=== PATIENT | female | born 1945 | race Caucasian/White ===

== ENCOUNTER 2021-11-01 14:48 | Outpatient (CLI) | payer MEDICARE, BC, SELFPAY ==
--- NOTE | 2021-11-01 15:00 | CRLHL7_ITS ---
For Patients: As a result of the Century Cures Act, medical imaging exams and procedure reports are released immediately into your electronic medical record. You may view this report before your referring provider. If you have questions, please contact your health care provider. INDICATION: Left varicosities, history of left greater saphenous vein ablation, left lower extremity pain TECHNIQUE: Ultrasound venous duplex lower left extremity. Compression venous exam was performed using haro-scale, color Doppler, and spectral Doppler analysis. COMPARISON: None FINDINGS: Sonographic imaging demonstrates the left common femoral, deep femoral, superficial femoral, popliteal, posterior tibial and the contralateral right common femoral veins to be fully compressible with normal color Doppler blood flow. Left greater saphenous vein not visualized. IMPRESSION: No sign of deep venous thrombosis left lower extremity. Dictated by Leonila Garcia MD @ 11/02/2021 3:30:09 PM (Electronically Signed)
== END 2021-11-01 14:49 | disposition home or self-care (01) ==
LOC: US 14:51
PROVIDERS: PCP Family Medicine; Visit Provider Family Medicine
DX: I83.812 Varicose veins of left lower extremity with pain
CPT/HCPCS: 93971

== ENCOUNTER 2021-12-24 13:52 | Outpatient (CLI) | payer MEDICARE, BC, SELFPAY ==
--- NOTE | 2021-12-24 14:01 | CRLHL7_ITS ---
For Patients: As a result of the Century Cures Act, medical imaging exams and procedure reports are released immediately into your electronic medical record. You may view this report before your referring provider. If you have questions, please contact your health care provider. CLINICAL HISTORY: Painful left lower extremity varicosities. History of prior superficial venous intervention. COMPARISON: None. TECHNIQUE: The lower extremity veins were examined with haro-scale ultrasound, color-flow and Doppler spectral analysis. Compressibility of the veins by transducer pressure was used to evaluate the presence or absence of DVT/SVT at sites per exam specific protocol. Assessment of venous competence was performed by Doppler spectral analysis and was performed and documented at exam specific sites in an upright position for venous insufficiency studies. FINDINGS: There is no evidence of DVT or deep venous incompetence in the left lower extremity. The deep venous system is compressible with augmentation of flow post compression. Phasic flow is identified. The left saphenofemoral junction and great saphenous vein are not seen to the distal thigh, consistent with prior intervention. Residual great saphenous vein incompetence is noted in the mid-calf (reflux duration 6 seconds, 2.8 mm), and at the distal calf (reflux duration 7.8 seconds, 3 mm). An incompetent perforating vein is noted in the mid-thigh (reflux duration 1.5 seconds, 3 mm). IMPRESSION: 1. No evidence of DVT or deep venous incompetence in the left lower extremity. 2. 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 Dictated by Mahesh Wilson MD @ 12/25/2021 9:38:33 AM (Electronically Signed)
== END 2021-12-24 13:53 | disposition home or self-care (01) ==
LOC: US 13:53
PROVIDERS: PCP Family Medicine; Visit Provider Surgery
DX: I83.812 Varicose veins of left lower extremity with pain (principal)
CPT/HCPCS: 93971

== ENCOUNTER 2022-02-24 08:00 | Day surgery (SDC) | payer MEDICARE, BC, SELFPAY ==
[2022-02-24 08:30] VITALS: BP 98/57; PULSE 58; RESP 16; TEMP 36.2; O2SAT 96
[2022-02-24 08:39] VITALS: BP 123/69; PULSE 60; RESP 16; TEMP 36.2; O2SAT 99
[2022-02-24] MEDS: LIDOCAINE 0.5%-EPI 1:200,000 50 ML VIAL INJECTION (09:11)
--- NOTE | 2022-02-24 09:56 | W.ANESCHARGE ---
Anesthesia Charges Start Date/Time Anesthesia Start Date: 02/24/22 Anesthesia Start Time: 08:55 Stop Date/Time Anesthesia Stop Date: 02/24/22 Anesthesia Stop Time: 10:00 Summary Emergency: No Extremes of Age: Over 70-CPT 97202
[2022-02-24] MEDS: LACTATED RINGERS 1000 ML 1,000 ML 75 ML IV (10:00)
--- NOTE | 2022-02-24 10:06 | PM.GSPRC ---
Operative Note Date of procedure: 02/24/22 Type of Procedure: 1. Excision left posterior knee lesion 2. Stab phlebectomy, left leg, 10 cm Procedure Description: After discussing the risks and benefits of the procedure, the patient signed informed consent.? The operative site was marked and the patient was brought to the operating room and placed on the operating table in right lateral decubitus.? Care was taken to pad the patient's pressure points.?? The patient was then given sedation by anesthesia.?? The operative site was then prepped and draped in the usual sterile fashion.? A time-out was then performed. Preoperatively, with the patient standing, the area varicosity behind the knee was marked with a marking pen. This coincided with a lesion on the posterior knee. An elliptical incision was made around this lesion and taken down to the subcutaneous that. The lesion was excised and marked with a stitch in the 3:00 a.m. or medial position. This was sent to pathology. Once this was done the vein was identified in the wound. This was grasped and dissected inferiorly and superiorly. The vein was noted to be very fragile and did break easily. A stab incision was made superiorly along the tract of marked vein. The vein was hooked and a mosquito clamp was then used to dissect the vein inferiorly and superiorly along its tract. Again the vein tore quite easily. The tract was probed and connected between the inferior incision and superior incision and any remaining vein tissue was removed. An incision was made superior to this incision and similarly the vein was dissected out, grass and pulled from the incision. This was repeated inferior to the lesion incision in 2 areas. Again the vein was noted to be very fragile and tore quite easily with minimal tension. The tracts were explored to ensure that the tissue was removed. Once this was done, hemostasis appeared adequate. This had been achieved with pressure. The elliptical incision behind the knee was closed with a running 4-0 Monocryl. Glue was applied then to all the stab incisions. Pressure dressing was applied. ? The patient was then woken and transported to the recovery area in stable condition. ? The patient tolerated the procedure well. Findings: Skin lesion on the left posterior knee, consistent with seborrheic keratosis Varicosities behind left knee. Anesthesia: MAC Surgeon: Loreta Gary MD Estimated blood loss (mL): 10 Condition: stable Disposition: same day
--- NOTE | 2022-02-24 10:06 | W.ANESCHARGE ---
Anesthesia Charges Start Date/Time Anesthesia Start Date: 02/24/22 Anesthesia Start Time: 08:55 Stop Date/Time Anesthesia Stop Date: 02/24/22 Anesthesia Stop Time: 10:00 Summary Emergency: No Extremes of Age: Over 72-CPT 09326
[2022-02-24 10:15] VITALS: BP 119/64; PULSE 63; RESP 16; TEMP 36.7; O2SAT 99
[2022-02-24 10:45] VITALS: BP 119/68; PULSE 65; RESP 16; TEMP 36.7; O2SAT 98
[2022-02-24 10:47] VITALS: BP 118/70; PULSE 68; RESP 16; TEMP 36.7; O2SAT 98
[2022-02-24 11:18] VITALS: BP 116/68; PULSE 65; RESP 16; TEMP 36.7; O2SAT 99
== END 2022-02-24 11:22 | disposition home or self-care (01) ==
PROVIDERS: PCP Family Medicine; Visit Provider Surgery
PROC: (CPT 37799; principal; 2022-02-24 09:00)
DX: L82.1 Other seborrheic keratosis (principal); I83.812 Varicose veins of left lower extremity with pain
CPT/HCPCS: 37799; 11402; 00400; 01520; 99100; J2704; J3490; J7120

== ENCOUNTER 2022-04-11 14:28 | Outpatient (CLI) | payer MEDICARE, BC, SELFPAY ==
--- OUTSIDE RECORDS SUMMARY | 2022-04-11 14:31 | XMS_ITS | Clinical Summary ---
:1945 Author Organization [employer] [facility] [place] [address] Care Team Providers Name Role Phone Reema Moses DO Primary Care Provider [phone] Allergies No known active allergies Medications Medication Sig Dispensed Refills Start Date End Date Status cholecalciferol Take 1 tablet by 0 07/01/2012 Active (VITAMIN D) 1,000 mouth once daily. unit tablet ascorbic acid Take 1 tablet by 0 07/01/2012 Active (VITAMIN C) 1,000 mg mouth once daily. tablet omega-3 fatty Take by mouth. 0 07/01/2012 Active acids-vitamin E (FISH twice daily OIL) 1,000 mg cap alendronate (FOSAMAX) Take 1 tablet by 0 07/01/2012 Active 70 mg tablet mouth once a week in the morning. Take on empty stomach with full glass of water. Do not lie down for 1 hr. Has not started yet. 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 Venous insufficiency 07/01/2012 High risk for fracture due to osteoporosis by DEXA sca n 07/01/2012 Encounters Date Type Specialty Care Team Description 02/24/2022 Lab Requisition Loreta Gary MD from Last 3 Months Social History Tobacco Use Types Packs/Day Years Used Date Never Smoker Sex Assigned at Date Recorded Not on file Obstetrics History Last Filed Vital Signs Vital Sign Reading Time Taken Comments Blood Pressure 110/72 07/01/2012 10:19 AM [employer] Pulse 62 07/01/2012 10:19 AM [employer] Temperature - - Respiratory Rate - - Oxygen Saturation - - Inhaled Oxygen Concentration - - Weight 55.8 kg (123 lb) 08/17/2012 12:00 PM CDT Height 160 cm (5' 3) 08/17/2012 12:00 PM CDT Body Mass Index 21.79 08/17/2012 12:00 PM CDT Plan of Treatment Health Maintenance Due Date Last Done Comments COVID-19 vaccine series (#1) 1945 Tdap 1958 Depression screening for age 12+ 1959 BMI (ht and wt on same day) for age 18+ 1965 Hepatitis C screening for age 18-79 1965 Tetanus booster 1967 Colonoscopy through age 75 02/23/1992 Lipids for age 45-75 02/23/1992 Zoster (shingles) series for age 50+ (1 of 2) 1997 DEXA/DXA scan for age 65+ 02/23/2012 Pneumococcal series for age 65+ (1 - PCV) 02/23/2012 Influenza for age 65+ 01/02/2022 Procedures Procedure Name Priority Date/Time Associated Diagnosis Comme nts PATH TISSUE EXAM Routine 02/24/2022 9:18 AM Resul ts for this CDT procedure are i n the results section. LAB TRACKING EVENT Routine 02/24/2022 9:15 AM CDT from Last 3 Months Results [facility] TISSUE EXAM (02/24/2022 9:18 AM CDT) Component Value Ref Test Analysis Performed At [facility] gist Range Method Time Signature Case Report Pathology Report ?Case: [id number] ? 02/25/2022 [facility] Authorizing Provider: ??Loreta Murguia MD ??Collected: ? 02/24/2022 0918 ? 1:52 PM CDT HEALTH Ordering Location: ? [facility] ?Received: ?02/24/2022 1944 ? HEATHER HUERTAS Pathologist: ? Prinecss Keyes MD ? ENTRAL Specimen: ?Left Knee ? LABORATORY Final SKIN, LEFT POSTERIOR KNEE, EXCISION: [facility] Electronically Diagnosis 1. Benign verrucous keratosis 1:52 PM [facility] signed by 2. Negative for malignancy LAB ORATORY-C Princess Keyes MD on LABORATORY 2 at 1:52 PM Clinical Lesion 02/25/2022 [facility] Information 1:52 PM [facility] LABORATORY-C ENTRAL LABORATORY Gross A) Received in formalin, lab eled with the patient's name and posterior knee lesion, left, is a 1.1 x 0.5 x 0.2 cm oriented skin ellipse with a suture that is not designated. ??The suture will be desig [facility] Description nated as 12:00. ??The skin s urface displays a 0.7 x 0.4 cm raised, crusted lee lesion that is 0.1 cm from the 3:00 margin. 1:52 PM [facility] LABORATORY-C The specimen is inked as follows: ENTRAL 12-3 o'clock: Blue LABORATORY 3-6 o'clock: Green 6-9 o'clock: Red 9-12 o'clock: Yellow The specimen is entirely submitted as follows: 1. ??12:00 and 6:00 tips 2. Cross-sections SSS 02/24/2022 Microscopic The final diagnosis is based on microscopic examination of appropriate sections of all specimens. 02/25/2022 [facility] Description 1:52 PM CDT HEALTH LABORATORY-C Sections reveal epidermal ve rrucous hyperplasia. No atypia or definitive viral cytopathic effect is seen. The presence of multicolored ink is confirmed on tissue sections. ENTRAL LABORATORY Additional 02/25/2022 [facility] Information Interpreted at [facility], Central Laboratory - [address], [place] [address] 1:52 PM CDT HEALTH LABORATORY-C ENTRAL LABORATORY Specimen Anatomical Collection Method Collection Time Receive d Time (Source) Location / / Volume Laterality Other (Left 02/24/2022 9:18 AM 7:44 Knee) CDT PM CDT Loreta Gary MD PATHOLOGY/CYTOLOGY Performing Organization Address City/State/ZIP Code Phon e Number [facility] [address] [place] [address] LABORATORY-CENTRAL 2000 LABORATORY LAB TRACKING EVENT (02/24/2022 9:15 AM CDT) Specimen Anatomical Collection Method Collection Time Receive d Time (Source) Location / / Volume Laterality Other (Other) Client Collect / 02/24/2022 9:15 AM 02/02 7:05 Unknown CDT PM CDT Loreta Gary MD LAB BILL ONLY Performing Organization Address City/State/ZIP Code Phon e Number [facility] [address] [place] [address] LABORATORY-CENTRAL 1999 LABORATORY from Last 3 Months Insurance Payer Benefit Plan / Subscriber ID Effective Dates Phone Addre ss Type Group MEDICARE PART A MEDICARE PART A [id number] 2012-Presen ATTN: CLAIMS - HB USE ONLY HB ONLY t [address] [place] [address] MEDICARE PART B MEDICARE PART B [id number] 2012-Presen ATTN: CLAIMS - HB USE ONLY HB ONLY t [address] [place] [address] [place] [place] BLUE CROSS [id number] 2012-Presen [address] [address] [address] [place], [place] [id number] BLUE CROSS BLUE CROSS [id number] 2012-Presen [address] [address] [address] [place], [place] ONLY [id number] Guarantor Name Account Type Relation to Date of Phone Bill ing Patient Address Cornelia Servin Personal/Family Self [address] (Home) [place] [address] Care Teams Tobacco Roller Relationship Specialty Start Date End Date Reema Moses DO PCP - General Family Practice 07/01/12
--- NOTE | 2022-04-11 14:40 | CRLHL7_ITS ---
For Patients: As a result of the Century Cures Act, medical imaging exams and procedure reports are released immediately into your electronic medical record. You may view this report before your referring provider. If you have questions, please contact your health care provider. BILATERAL SCREENING MAMMOGRAM WITH COMPUTER-AIDED DETECTION AND TOMOSYNTHESIS TECHNIQUE: CC and MLO views were obtained. These mammographic images have been obtained using full-field digital technique. These mammographic images were interpreted with the benefit of computer-aided detection. Breast tomosynthesis was used in this interpretation. COMPARISON FILM: 01/28/21, 01/17/20, 12/30/18. FINDINGS: The breasts are heterogeneously dense, which may obscure small masses. IMPRESSION: There is no radiographic evidence for malignancy. ASSESSMENT: BI-RADS Category 1: Negative RECOMMENDATION: Routine screening mammogram in 1 year. A lay language report of this examination will be provided to the patient. BRAYDON CUI M.D. Diagnostic Radiologist [email or web address]/[email or web address] Transcribed: 04/14/2022, 2:[address]/Dictated by: Braydon Cui MD @ 04/14/2022 9:19:00 AM (Electronically Signed)
== END 2022-04-11 14:29 | disposition home or self-care (01) ==
LOC: MAMMO 14:29
PROVIDERS: PCP Family Medicine; Visit Provider Family Medicine
DX: Z12.31 Encounter for screening mammogram for malignant neoplasm of breast (principal); R92.2 Inconclusive mammogram
CPT/HCPCS: 77063; 77067

== ENCOUNTER 2022-12-30 09:07 | Inpatient (IN) | payer MEDICARE, BC, SELFPAY ==
[2022-12-30] VITALS (15 sets, daily range): BP systolic 76–123; BP diastolic 47–61; PULSE 63–117; RESP 16–18; TEMP 36.6–37.2; O2SAT 94–99; BMI 22.1; BMI 22.2
[2022-12-30 09:23] LABS: Appearance Urine Clear (Clear); Bilirubin Urine 1+ (Negative); Blood Urine 3+ (Negative); Color Urine Dark yellow (Yellow); Glucose Urine Negative (Negative); Ketones Urine Trace (Negative); Leukocyte Esterase Urine 3+ (Negative); Nitrite Urine Positive (Negative); Protein Urine 3+ (Negative); pH Urine 7.5 (5.0-8.5)
[2022-12-30 09:33] LABS: Bacteria Urine Moderate; RBC Urine 50-100 (0-2); Squamous Epithelial Cell Urine Few (None-Few); WBC Urine >100 (0-5)
[2022-12-30] MEDS: 0.9 % SODIUM CHLORIDE 1000 ml 1,000 ML IV (09:51)
[2022-12-30 09:52] LABS: Lactate* 1.4 mmol/L (0.5-1.9)
[2022-12-30 09:54] LABS: Basophils Percent Auto 0.1 % (0.0-3.0); Hematocrit 37.3 % (33.0-51.0); Hemoglobin* 12.5 gm/dL (12.0-16.0); Immature Granulocytes Pct Auto 1.1 %; Lymphocytes Percent Auto 2.6 % (20-44); Mean Corpuscular HGB Conc 34 gm/dL (32-36); Mean Corpuscular Hemoglobin 30 pg (26-34); Mean Corpuscular Volume 91 fL (80-100); Monocytes Percent Auto 3.7 % (0.0-11.0); Neutrophils Percent Auto 92.5 % (42.0-72.0); Platelet Count* 213 K/uL (140-440); RDW Coefficient of Variation % 12.3 % (11.5-15.5); Red Blood Count 4.12 m/uL (4.00-5.20); White Blood Count* 17.08 K/uL (4.50-11.00)
[2022-12-30 09:57] LABS: Chloride* 101 mmol/L (96-114); Potassium* 3.1 mmol/L (3.6-5.1); Slide Review Reflex No; Sodium* 133 mmol/L (135-149)
[2022-12-30 10:00] LABS: Creatinine* 0.8 mg/dL (0.5-1.5); Est. Creatinine Clearance* 40.21; Estimated Glomerular Filt Rate 77 ml/min
[2022-12-30 10:01] LABS: Anion Gap 11 mEq/L (7-15); Blood Urea Nitrogen* 18 mg/dL (7-30); Calcium* 8.8 mg/dL (8.4-10.6); Carbon Dioxide* 21 mmol/L (20-32); Glucose* 142 mg/dL (60-115)
[2022-12-30 10:03] LABS: Prothrombin Time 14.6 Seconds
[2022-12-30 10:04] LABS: C Reactive Protein* 5.2 mg/dL (0.5-1.0); INR 1.08 (0.91-1.10)
[2022-12-30 10:10] LABS: D Dimer Quantitative* 5.34 ug/ml (0.00-0.50)
[2022-12-30] MEDS: cefTRIAXone 1 GM in 0.9 % SODIUM CHLORIDE Mini-bag 100 ML IVPB (10:11)
--- NOTE | 2022-12-30 10:13 | CRLHL7_ITS ---
For Patients: As a result of the Century Cures Act, medical imaging exams and procedure reports are released immediately into your electronic medical record. You may view this report before your referring provider. If you have questions, please contact your health care provider. INDICATION: COVID 19, elevated D-dimer. TECHNIQUE: CT chest PE was acquired with 95 cc Isovue 370 IV contrast. COMPARISON: None. FINDINGS: Heart and vasculature: Contrast opacification of the pulmonary arterial tree is adequate. No sign of pulmonary embolism. Heart size is normal. Thoracic aorta and pulmonary artery are normal in caliber. Lungs and pleura: No suspicious nodules or infiltrates. 2 millimeter nodule within the right upper lobe (image 79, series 7). Linear atelectasis and/or scar in the lung bases. No pleural effusions, pleural thickening, or pneumothorax. Lymph nodes/mediastinum: No mediastinal, hilar, or axillary adenopathy. Chest wall: No masses. Upper abdomen: Calcified granulomas throughout the spleen. No acute abdominal abnormality. Bones: No acute bone or joint abnormality. Degenerative spondylosis of the visualized spine. IMPRESSION: 1. No pulmonary arterial embolism. 2. Evidence of previous granulomatous disease. 3. 2 millimeter right upper lobe pulmonary nodule. If the patient is at low risk for pulmonary malignancy then no routine imaging follow-up is necessary. If the patient is at increased risk of pulmonary malignancy then a follow-up CT scan of the chest could be performed in 1 year as per Fleischner criteria guidelines. Please note that all CT scans at this facility use dose modulation, iterative reconstruction, and/or weight-based dosing when appropriate to reduce radiation dose to as low as reasonably achievable. Dictated by Monico Ashford MD @ 12/30/2022 11:23:56 AM (Electronically Signed)
[2022-12-30 10:14] LABS: Alanine Aminotransferase* 19 U/L (4-35); Alkaline Phosphatase* 67 U/L (40-150); Aspartate Amino Transferase* 25 U/L (12-35); Total Protein* 6.9 g/dL (6.0-8.3)
--- NOTE | 2022-12-30 11:02 | ED_ITS ---
HPI - General Adult General Chief complaint: Weakness Stated complaint: poss uti, fatigue, dizzy COVID + Time Seen by Provider: 12/30/22 09:12 Source: patient Mode of arrival: ambulatory Limitations: no limitations History of Present Illness HPI narrative: 77-year-old female coming in today complaining of not feeling well in general. States that she self-diagnosed COVID-19 last , since then feels like she has developed UTI. She complains of dysuria and suprapubic discomfort. States that she feels weak all over, decreased appetite, feels lightheaded and wobbly when she stands up. She has been drinking plenty of fluids she states that has not been eating much food. Denies fever or vomiting. No blood in her urine that she is aware of. She denies abdominal pain or chest pain. Cough is minimal, she is not feeling short of breath. Related Data Home Medications Medication Instructions Recorded Confirmed calcium carbonate 600 mg-vitamin 1 tab PO DAILY 10/29/21 12/29/22 D3 5 mcg (200 unit) tablet cholecalciferol (vitamin D3) 25 25 mcg PO QDAY 10/29/21 12/29/22 mcg (1,000 unit) capsule diphenhydramine HCl 25 mg capsule mg PO DAILY 10/29/21 12/29/22 omega-3 650 mg-dha 400 mg-epa 200 cap PO 10/29/21 12/29/22 mg-fish oil-vit D3 300 unit capsule valacyclovir 1 gram tablet mg PO DIRECTED 10/29/21 12/29/22 triamcinolone acetonide 0.1 % 1 applic topical BID PRN 10/31/22 12/29/22 topical ointment Previous Rx's Medication Instructions Recorded hydrocortisone 2.5 % topical cream 1 applic topical BID PRN rash #20 05/23/22 grams tizanidine 2 mg capsule (Zanaflex) 2 mg PO QHS PRN muscle spasticity 10/31/22 #14 caps cyclobenzaprine 5 mg tablet 5 - 10 mg (1 - 2 x 5 mg) PO QHS 11/06/22 PRN muscle spasm #20 tabs nitrofurantoin 100 mg PO BID 5 days #10 caps 12/29/22 monohydrate/macrocrystals 100 mg capsule phenazopyridine 100 mg tablet 100 mg PO TID PRN pain 6 doses #6 12/29/22 (Pyridium) tabs Allergies Allergy/AdvReac Type Severity Reaction Status Date / Time alendronate sodium Allergy Severe Verified 12/29/22 14:59 Review of Systems Status of ROS: Reports: 10 or more systems reviewed and unremarkable except as noted in History and below 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.1 - Herpesviral vesicular dermatitis (ICD-10) Seborrheic keratosis (05/18/12) ?L82.1 - Other seborrheic keratosis (ICD-10) Osteopenia (2019) ?M85.80 - Other specified disorders of bone density and structure, unspecified site (ICD-10) Osteoarthritis (arthritis due to wear and tear of joints) ?M19.90 - Unspecified osteoarthritis, unspecified site (ICD-10) Dyslipidemia ?E78.5 - Hyperlipidemia, unspecified (ICD-10) Surgical History Normal colonoscopy (2016) History of varicose vein ligation and stripping ?Z98.890 - Other specified postprocedural states (ICD-10) Family History Son Epilepsy Mother Stroke, Onset Age: 76 Father Syringomyelocele Social History Narrative: , retired teacher, 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 Alert and oriented. Answers questions appropriately. Mood and affect are appropriate. Thoughts are goal oriented and rational. No tangential or magical thinking noted. Patient speaks in full sentences without needing to catch her breath. HEENT: Normocephalic atraumatic. Pupils are equally round reactive to light. Extraocular muscles are intact. Conjunctivae are moist without any icterus noted. Moist mucous membranes. Posterior pharynx is normal. Neck is soft without any lymphadenopathy or thyromegaly. No masses are appreciated. Cardiovascular: Heart is regular rate and rhythm S1 and S2 are present without any murmurs. Lungs: Clear to auscultation bilaterally no wheezes rhonchi or rales are appreciated. Patient takes deep breaths without any discomfort. Abdomen: Soft and nontender nondistended with normal bowel sounds. No guarding or rebound. No masses or organomegaly appreciated. Extremities: Bilateral lower extremities are without edema. Normal DP and PT pulses. Skin: Well perfused without any obvious rashes. Const: Vital Signs, click to edit/add: Vital Signs - 24 hr 12/30/22 09:29 12/30/22 09:40 12/30/22 09:45 Temperature 99.0 F Pulse Rate [Pulse Oximeter] 111 H Pulse Rate [orthos tatic lying] 96 Pulse Rate [orthos tatic sitting] 108 H Pulse Rate [orthos tatic standing] 117 H Respiratory Rate 16 Blood Pressure [Ri ght Upper Arm] 113/58 L Blood Pressure [or thostatic lying] 104/53 L Blood Pressure [or thostatic sitting] 89/53 L Blood Pressure [or thostatic standing ] 76/48 L Pulse Oximetry 95 94 Oxygen Delivery Me thod Room Air 12/30/22 09:46 12/30/22 10:00 12/30/22 10:13 Temperature Pulse Rate [Pulse Oximeter] 83 Pulse Rate [orthos tatic lying] Pulse Rate [orthos tatic sitting] Pulse Rate [orthos tatic standing] Respiratory Rate Blood Pressure [Ri ght Upper Arm] 96/58 L 95/50 L Blood Pressure [or thostatic lying] Blood Pressure [or thostatic sitting] Blood Pressure [or thostatic standing ] Pulse Oximetry 95 Oxygen Delivery Me thod Room Air 12/30/22 10:17 12/30/22 10:31 12/30/22 11:00 Temperature Pulse Rate [Pulse Oximeter] 83 82 87 Pulse Rate [orthos tatic lying] Pulse Rate [orthos tatic sitting] Pulse Rate [orthos tatic standing] Respiratory Rate Blood Pressure [Ri ght Upper Arm] 97/54 L 101/53 L 123/61 Blood Pressure [or thostatic lying] Blood Pressure [or thostatic sitting] Blood Pressure [or thostatic standing ] Pulse Oximetry 96 97 99 Oxygen Delivery Me thod Room Air Room Air Room Air Course Course Hospital Course: IV established and fluids were started. UA grossly positive for signs of infection. Rocephin given for UTI. White blood cell count elevated at just above 17,000, CRP elevated. D-dimer elevated-patient went to get a chest CT PE protocol. EKG was ordered. Patient is respond IV fluids, systolic blood pressure did increase and pulse did come down into the 80s. Vital Signs Vital signs: Initial Vital Signs Temperature 99.0 F 12/30/22 09:29 Temperature Source Temporal Artery Scan 12/30/22 09:29 Pulse Rate 111 H 12/30/22 09:29 Pulse Rhythm Irregular 12/30/22 09:29 Respiratory Rate 16 12/30/22 09:29 Blood Pressure 113/58 L 12/30/22 09:29 Blood Pressure Mean 76 12/30/22 09:29 Blood Pressure Position Supine 12/30/22 09:29 Pulse Oximetry 95 12/30/22 09:29 Oxygen Delivery Method Room Air 12/30/22 09:29 Vital Signs Temperature 99.0 F 12/30/22 09:29 Pulse Rate 111 H 12/30/22 09:29 Respiratory Rate 16 12/30/22 09:29 Blood Pressure 113/58 L 12/30/22 09:29 Pulse Oximetry 95 12/30/22 09:29 Oxygen Delivery Method Room Air 12/30/22 09:29 Temperature 99.0 F 12/30/22 09:29 Pulse Rate 87 12/30/22 11:00 Respiratory Rate 16 12/30/22 09:29 Blood Pressure 123/61 12/30/22 11:00 Pulse Oximetry 99 12/30/22 11:00 Oxygen Delivery Method Room Air 12/30/22 11:00 Medical Decision Making MDM Narrative Medical decision making narrative: 77-year-old female with UTI COVID-19, hypotension. Did fit sepsis criteria upon arrival, however with elevated blood pressure and decreased pulse, she no longer fits the criteria. Patient will be admitted for further management. Chest CT PE protocol pending at this time. Medical Records Medical records reviewed: Yes I reviewed the patient's medical records Lab Data Lab results reviewed: Yes I reviewed the patient's lab results Labs: Lab Results 12/30/22 12/30/22 Range/Units 09:15 09:25 WBC 17.08 H (4.50-11.00) K/uL RBC 4.12 (4.00-5.20) m/uL Hgb 12.5 (12.0-16.0) gm/dL Hct 37.3 (33.0-51.0) % MCV 91 (80-100) fL MCH 30 (26-34) pg MCHC 34 (32-36) gm/dL RDW Coeff of Stanislaw 12.3 (11.5-15.5) % Plt Count 213 (140-440) K/uL Neut % (Auto) 92.5 H (42.0-72.0) % Lymph % (Auto) 2.6 L (20-44) % [place] % (Auto) 3.7 (0.0-11.0) % Eos % (Auto) 0.0 (0.0-7.0) % Baso % (Auto) 0.1 (0.0-3.0) % Neut # (Auto) 15.80 H (1.7-7.0) K/uL Lymph # (Auto) 0.40 L (0.90-2.90) K/uL [place] # (Auto) 0.60 (0.00-0.90) K/UL Eos # (Auto) 0.00 (0.00-0.50) K/uL Baso # (Auto) 0.00 (0.00-0.30) K/uL Abs Immat Gran (auto) 0.20 (0.00-0.30) K/uL Imm/Tot Granulo (auto) 1.1 % INR 1.08 (0.91-1.10) D-Dimer Quant (PE/DVT) 5.34 H (0.00-0.50) ug/ml Sodium 133 L (135-149) mmol/L Potassium 3.1 L (3.6-5.1) mmol/L Chloride 101 (96-114) mmol/L Carbon Dioxide 21 (20-32) mmol/L Anion Gap 11 (7-15) mEq/L BUN 18 (7-30) mg/dL Creatinine 0.8 (0.5-1.5) mg/dL Estimated Creat Clear 40.21 Estimated GFR 77 ml/min Glucose 142 H (60-115) mg/dL Lactate 1.4 (0.5-1.9) mmol/L Calcium 8.8 (8.4-10.6) mg/dL Total Bilirubin 1.0 (0.1-1.5) mg/dL Direct Bilirubin 0.0 (0.0-0.5) mg/dL AST 25 (12-35) U/L ALT 19 (4-35) U/L Alkaline Phosphatase 67 (40-150) U/L C-Reactive Protein 5.2 H (0.5-1.0) mg/dL Total Protein 6.9 (6.0-8.3) g/dL Albumin 4.0 (3.3-5.0) g/dL Urine Color Dark yellow (Yellow) Urine Appearance Clear (Clear) Urine pH 7.5 (5.0-8.5) Ur Specific [place] 1.020 (1.000-1.030) Urine Protein 3+ A (Negative) Urine Glucose (UA) Negative (Negative) Urine Ketones Trace A (Negative) Urine Blood 3+ A (Negative) Urine Nitrite Positive A (Negative) Urine Bilirubin 1+ A (Negative) Urine Urobilinogen 1.0 (0.2-1.0) Ur Leukocyte Esterase 3+ A (Negative) Urine RBC 50-100 A (0-2) Urine WBC >100 A (0-5) Ur Squamous Epith Cells Few (None-Few) Urine Bacteria Moderate A (None) Discharge Plan Discharge Clinical Impression: COVID-19, Acute UTI, Hypotension Patient Disposition: Admitted As Observation
[2022-12-30 12:58] LABS: Lactate Dehydrogenase* 235 U/L (120-246)
--- NOTE | 2022-12-30 14:44 | CRLHL7_ITS ---
For Patients: As a result of the Century Cures Act, medical imaging exams and procedure reports are released immediately into your electronic medical record. You may view this report before your referring provider. If you have questions, please contact your health care provider. INDICATION: Left lower quadrant pain.. TECHNIQUE: CT abdomen and pelvis acquired with 62 cc Isovue 370 IV contrast. COMPARISON: None. FINDINGS: Lower chest: Bibasilar linear opacities likely atelectasis or scarring. Liver: Unremarkable. Normal in size and attenuation. No suspicious masses. Gallbladder and bile ducts: Unremarkable. No stones or inflammation. No biliary dilatation. Pancreas: Unremarkable. No mass or inflammation. Spleen: Multiple calcified granulomas in the spleen. Adrenal glands: Unremarkable. No nodules. Kidneys: Duplicated left collecting system. There wedge-shaped hyper enhancing lesions throughout the left kidney extending to the cortex. Possible mild thickening of the left ureter. GI tract: Unremarkable. Normal in caliber. No sign of mass or inflammation. Normal appendix. Vasculature: Abdominal aorta is normal in caliber. Mesenteric arteries are patent. Lymph nodes: No lymphadenopathy. Peritoneum/Abdominal Wall: Unremarkable. No sign of mass or infiltration. No free air or significant free fluid. Pelvis: Diffuse bladder wall thickening is noted. The bladder is partially collapsed. Bones: Unremarkable for age. IMPRESSION: Enhancing wedge-shaped lesions in the left kidney may be seen in the setting of interstitial nephritis suggest pyelonephritis. Alternately, this may be related to cortical necrosis and retention of contrast through the collecting system. Correlate with UA and urinary labs. Please note that all CT scans at this facility use dose modulation, iterative reconstruction, and/or weight-based dosing when appropriate to reduce radiation dose to as low as reasonably achievable. Dictated by Hira Wilson MD @ 12/30/2022 4:28:17 PM (Electronically Signed)
--- NOTE | 2022-12-30 14:46 | PM.IMHP1 ---
Hospitalist- H&P: HPI History of Present Illness Date Seen: 12/30/22 Chief complaint: poss uti, fatigue, dizzy COVID + Narrative: Cornelia Servin is a 77 year old female who presented to the emergency room today for 3 day history of illness. She recently went on a cruise with her and just prior to flying home, they had mild cough without any other symptoms. They both tested positive for COVID 6 days ago; but she has generally felt well until the past 3 days. She has had dysuria and urinary frequency, diagnosed with UTI yesterday and started on Macrobid and Pyridium. Symptoms persisted and she has also felt weaker than usual, so she presented to the emergency room today. ER course and findings: - white blood count of 17 with PMN predominance - no pulmonary embolism on CTA of chest - potassium of 3.1 - orthostatic hypotension noted, generally asymptomatic - UA persistently positive, ceftriaxone given Given patient's symptoms and weakness, she is admitted to the hospital. Cornelia is generally healthy, takes no prescription meds on a daily basis. History updated below, PCP is Dr. Melgar locally. Review of Systems Narrative: - in addition to dysuria and frequency, has noted LLQ pain over the past day - no changes in stools [facility] Medical History (Updated 12/30/22 @ 15:02 by Nat Rosario MD) Diverticulosis ?K57.90 - Diverticulosis of intestine, part unspecified, without perforation or abscess without bleeding (ICD-10) Chronic neck pain ?M54.2 - Cervicalgia (ICD-10) ?G89.29 - Other chronic pain (ICD-10) Eczema ?L30.9 - Dermatitis, unspecified (ICD-10) Neck pain ?M54.2 - Cervicalgia (ICD-10) Varicose veins of left lower extremity (~10/2021) ?I83.92 - Asymptomatic varicose veins of left lower extremity (ICD-10) 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 - Hypertrophy of bone, unspecified shoulder (ICD-10) Family history of syringomyelocele ?Z82.79 - Family history of other congenital malformations, deformations and chromosomal abnormalities (ICD-10) Health care directive on file ?Z78.9 - Other specified health status (ICD-10) 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-inflammatories (NSAID) ?Z79.1 - senior living (current) use of non-steroidal anti-inflammatories (NSAID) (ICD-10) Recurrent cold sores ?B00.1 - Herpesviral vesicular dermatitis (ICD-10) Seborrheic keratosis (05/18/12) ?L82.1 - Other seborrheic keratosis (ICD-10) Osteopenia (2019) ?M85.80 - Other specified disorders of bone density and structure, unspecified site (ICD-10) Osteoarthritis (arthritis due to wear and tear of joints) ?M19.90 - Unspecified osteoarthritis, unspecified site (ICD-10) Dyslipidemia ?E78.5 - Hyperlipidemia, unspecified (ICD-10) Surgical History Normal colonoscopy (2016) History of varicose vein ligation and stripping ?Z98.890 - Other specified postprocedural states (ICD-10) Family History Son Epilepsy Mother Stroke, Onset Age: 76 Father Syringomyelocele Social History (Updated 12/30/22 @ 14:59 by Nat Rosario MD) Narrative: to Ramirez (he would be medical decision maker if needed), retired teacher, 3 adult children No tobacco, rare ETOH Originally from [place] exercises regularly- 5-6/week, cardio and yoga Requests DNR/DNI status What is your current living situation?: I presently have a place to live Problems where you live: no known problems Problems where you live details: pt denies problems In the past 12 months, utilities in danger of being shut off: no In the past 12 mos, have been you worried that your food would run out before you had money to buy more?: never true In the past 12 mos, the food you bought just didn't last and you didn't have money to buy more?: never true Highest level of school completed/degree received: Bachelor's degree Smoking Status: Never smoker How often do you have a drink containing alcohol: monthly or less Alcohol type details: pt states a couple drinks (i.e. glass of prosecco) a year How often do you have six or more drinks on one occasion: Never AUDIT-C Alcohol total score: 1 Non-prescribed substance use: denies use Caffeine: Yes (caffeine (coffee) daily) How often does anyone, including family, friends and others, physically hurt you: never How often does anyone, including family, friends and others, insult or talk down to you: never How often does anyone, including family, friends and others, threaten you with harm: never How often does anyone, including family, friends and others, scream or curse at you: never Little interest or pleasure in doing things: not at all Feeling down, depressed, or hopeless: not at all service: No Meds Home Medications and Allergies Home Medications Medication Instructions Recorded Confirmed Type calcium carbonate 600 mg-vitamin 1 tab PO DAILY 10/29/21 12/30/22 History D3 5 mcg (200 unit) tablet cholecalciferol (vitamin D3) 25 25 mcg PO DAILY 10/29/21 12/30/22 History mcg (1,000 unit) capsule diphenhydramine HCl 25 mg capsule 25 mg PO HS 10/29/21 12/30/22 History acetaminophen 500 mg tablet 500 mg PO HS 12/30/22 12/30/22 History (Tylenol Extra Strength) omega [id number]-fish oil 1,000 mg 1 cap PO DAILY 12/30/22 12/30/22 History (120 mg-180 mg) capsule (Fish Oil) Allergies Allergy/AdvReac Type Severity Reaction Status Date / Time alendronate sodium Allergy Severe Verified 12/29/22 14:59 Exam Narrative: Exam Narrative: GEN: Alert and oriented, sitting comfortably in bed HEENT: EOMIs bilaterally, no scleral icterus CV: RRR, No concerning murmurs, rubs, or gallops R: LCTA bilaterally without concerning wheezing, air movement adequate Ab: soft, no masses, + ttp and mild guarding in LLQ and L flank Ext: wwp, no concerning edema Skin: No concerning skin lesions or rashes on exposed skin Neuro: Nonfocal Psych: Appropriate Const: Vital Signs, click to edit/add: Vital Signs - 24 hr 12/30/22 09:29 12/30/22 09:40 12/30/22 09:45 Temperature 99.0 F Pulse Rate [Pulse Oximeter] 111 H Pulse Rate [orthos tatic lying] 96 Pulse Rate [orthos tatic sitting] 108 H Pulse Rate [orthos tatic standing] 117 H Respiratory Rate 16 Blood Pressure [Le ft Arm] Blood Pressure [Ri ght Upper Arm] 113/58 L Blood Pressure [or thostatic lying] 104/53 L Blood Pressure [or thostatic sitting] 89/53 L Blood Pressure [or thostatic standing ] 76/48 L Pulse Oximetry 95 94 Oxygen Delivery Me thod Room Air 12/30/22 09:46 12/30/22 10:00 12/30/22 10:13 Temperature Pulse Rate [Pulse Oximeter] 83 Pulse Rate [orthos tatic lying] Pulse Rate [orthos tatic sitting] Pulse Rate [orthos tatic standing] Respiratory Rate Blood Pressure [Le ft Arm] Blood Pressure [Ri ght Upper Arm] 96/58 L 95/50 L Blood Pressure [or thostatic lying] Blood Pressure [or thostatic sitting] Blood Pressure [or thostatic standing ] Pulse Oximetry 95 Oxygen Delivery Me thod Room Air 12/30/22 10:17 12/30/22 10:31 12/30/22 11:00 Temperature Pulse Rate [Pulse Oximeter] 83 82 87 Pulse Rate [orthos tatic lying] Pulse Rate [orthos tatic sitting] Pulse Rate [orthos tatic standing] Respiratory Rate Blood Pressure [Le ft Arm] Blood Pressure [Ri ght Upper Arm] 97/54 L 101/53 L 123/61 Blood Pressure [or thostatic lying] Blood Pressure [or thostatic sitting] Blood Pressure [or thostatic standing ] Pulse Oximetry 96 97 99 Oxygen Delivery Me thod Room Air Room Air Room Air 12/30/22 11:46 12/30/22 12:14 12/30/22 12:14 Temperature Pulse Rate [Pulse Oximeter] 79 Pulse Rate [orthos tatic lying] Pulse Rate [orthos tatic sitting] Pulse Rate [orthos tatic standing] Respiratory Rate 16 Blood Pressure [Le ft Arm] 110/59 L Blood Pressure [Ri ght Upper Arm] 104/51 L Blood Pressure [or thostatic lying] Blood Pressure [or thostatic sitting] Blood Pressure [or thostatic standing ] Pulse Oximetry 95 96 Oxygen Delivery Me thod Room Air Room Air Hospitalist - H&P: Result Labs Labs: Short CBC 12/30/22 Range/Units 09:25 WBC 17.08 H (4.50-11.00) K/uL Hgb 12.5 (12.0-16.0) gm/dL Hct 37.3 (33.0-51.0) % Plt Count 213 (140-440) K/uL BMP 12/30/22 09:25 Sodium 133 L Potassium 3.1 L Chloride 101 Carbon Dioxide 21 BUN 18 Creatinine 0.8 Glucose 142 H Calcium 8.8 Liver Function 12/30/22 Range/Units 09:25 Total Bilirubin 1.0 (0.1-1.5) mg/dL Direct Bilirubin 0.0 (0.0-0.5) mg/dL AST 25 (12-35) U/L ALT 19 (4-35) U/L Alkaline Phosphatase 67 (40-150) U/L Albumin 4.0 (3.3-5.0) g/dL Urine 12/30/22 Range/Units 09:15 Urine Color Dark yellow (Yellow) Urine Appearance Clear (Clear) Urine pH 7.5 (5.0-8.5) Ur Specific [place] 1.020 (1.000-1.030) Urine Protein 3+ A (Negative) Urine Glucose (UA) Negative (Negative) Assessment and Plan Assessment and plan (1) COVID-19: Problem comment: - weakness as primary symptom - no hypoxia, requiring no COVID specific therapies at this time - therapies, supportive cares Status: Acute (2) Acute UTI: Problem comment: - culture pending - Macrobid as outpatient 12/29, Ceftriaxone started 12/30 Status: Acute (3) Hypotension: Problem comment: - noted in ED, asymptomatic - baseline BPs are low per chart review Status: Acute (4) LLQ pain: Problem comment: - ddx: early pyleo, diverticulitis, other infectious process - will obtain CT ab/pelvis to further evaluate, plan pending results Status: Acute (5) Hypokalemia: Problem comment: - replace and follow Status: Acute Plan - per above - Lovenox for prophylaxis - patient requests DNR/DNI status
--- NOTE | 2022-12-30 15:38 | PC.NURSE ---
End of shift nursing note, care provided from 1215 to 1500: Pt admit from ED at 1215. Pt SBA w/ GB to bathroom, reported to be orthostatic hypotensive earlier in ED. Denies dizziness. Denies pain at this time, but states occasional intermit L flank pain. Regular diet, tolerating, eating 100% of lunch. Voiding without issue. CT of abd/pelvis ordered this afternoon, pt left unit at 1500. IV to R forearm saline locked. Achieved 1500ml on IS. Pt has call light within reach and able to use appropriately.
[2022-12-30] MEDS: POTASSIUM BICARB 25 MEQ EFFERVESCENT TAB PO ×3 (16:14→20:44)
[2022-12-30] MEDS: ACETAMINOPHEN 325 MG TABLET 975 MG PO ×2 (16:18→22:00)
[2022-12-30] MEDS: SODIUM CHLORIDE 0.9 % (FLUSH) 10 ML SYRINGE 5 ML IVF (20:44)
[2022-12-30] MEDS: diphenhydrAMINE 25 MG CAPSULE PO (20:44)
[2022-12-30] MEDS: 0.9 % SODIUM CHLORIDE 500 ML 500 ML IV (20:45)
[2022-12-30] MEDS: PIPERACILLIN/TAZOBACTAM 3.375 GM in 0.9 % SODIUM CHLORIDE Mini-bag 100 ML IVPB (21:58)
[2022-12-30] MEDS: 0.9 % SODIUM CHLORIDE 1000 ml 1,000 ML 125 ML IV (21:59)
--- NOTE | 2022-12-30 22:15 | W.PM.CROSSCO ---
Subjective Subjective Interval history: Blood cultures + for GNR Antibiotics broadened to Zosyn, on maintenance IVFs with boluses prn No tachycardia, hypotension persists (patient asymtomatic from lower BPs and baseline is typically lower per chart review)
--- NOTE | 2022-12-30 23:33 | PC.NURSE ---
End of Shift: Patient pleasant and cooperative. Afebrile. Rating pain in left back 2/10 and PRN Tylenol given x2. Up to bathroom and chair with SBA, denies any lightheadedness or dizziness. BP 97/57 and 89/47, updated MD, bolus given as ordered. O2 sats greater than 90% on room air. Patient tolerating regular diet with no nausea.
[2022-12-31] VITALS (8 sets, daily range): BP systolic 97–122; BP diastolic 54–70; PULSE 64–85; RESP 16–18; TEMP 36.7–38; O2SAT 75–99
[2022-12-31] MEDS: PIPERACILLIN/TAZOBACTAM 3.375 GM in 0.9 % SODIUM CHLORIDE Mini-bag 100 ML IVPB ×4 (03:27→21:22)
[2022-12-31] MEDS: 0.9 % SODIUM CHLORIDE 1000 ml 1,000 ML 125 ML IV ×3 (05:45→21:23)
[2022-12-31 06:58] LABS: Basophils Absolute Auto 0.02 K/uL (0.00-0.30); Basophils Percent Auto 0.2 % (0.0-3.0); Eosinophils Absolute Auto 0.02 K/uL (0.00-0.50); Eosinophils Percent Auto 0.2 % (0.0-7.0); Hematocrit 28.5 % (33.0-51.0); Hemoglobin* 9.4 gm/dL (12.0-16.0); Immature Granulocytes Abs Auto 0.02 K/uL (0.00-0.30); Immature Granulocytes Pct Auto 0.2 %; Lymphocytes Percent Auto 6.5 % (20-44); Mean Corpuscular HGB Conc 33 gm/dL (32-36); Mean Corpuscular Hemoglobin 31 pg (26-34); Mean Corpuscular Volume 93 fL (80-100); Monocytes Percent Auto 4.9 % (0.0-11.0); Platelet Count* 206 K/uL (140-440); RDW Coefficient of Variation % 12.9 % (11.5-15.5); Red Blood Count 3.06 m/uL (4.00-5.20); White Blood Count* 10.81 K/uL (4.50-11.00)
[2022-12-31 06:59] LABS: Lactate* 0.8 mmol/L (0.5-1.9)
--- NOTE | 2022-12-31 07:00 | PC.NURSE ---
Pt alert and oriented x3. Afebrile. Pt lung sounds are clear, O2 stats have maintained?>94% throughout night. Pt had soft bp?s overnight 91/47 and 100/55, pt asystematic, pt denies dizziness and light-headedness, no increase in heart rate. Pt denies pain, chest pain, SOB?and N/V.?Pt is up ad lb in room, voiding. Pt slept throughout most of night. Night uneventful.
[2022-12-31 07:03] LABS: Slide Review Reflex No
[2022-12-31 07:23] LABS: Chloride* 108 mmol/L (96-114); Potassium* 3.8 mmol/L (3.6-5.1); Sodium* 138 mmol/L (135-149)
[2022-12-31 07:26] LABS: Creatinine* 0.6 mg/dL (0.5-1.5); Est. Creatinine Clearance* 40.21; Estimated Glomerular Filt Rate 94 ml/min
[2022-12-31 07:27] LABS: Anion Gap 4 mEq/L (7-15); Blood Urea Nitrogen* 14 mg/dL (7-30); Calcium* 7.8 mg/dL (8.4-10.6); Carbon Dioxide* 26 mmol/L (20-32); Glucose* 92 mg/dL (60-115)
[2022-12-31 07:30] LABS: C Reactive Protein* 7.6 mg/dL (0.5-1.0)
--- NOTE | 2022-12-31 09:14 | PM.IMPN1 ---
Progress Note: A&P Assessment and plan (1) COVID-19: Problem details: - weakness as primary symptom, self-tested positive on 12/25/22 - no hypoxia, requiring no COVID specific therapies - therapies, supportive cares Status: Acute (2) Acute UTI: Problem details: - culture positive for pansensitive E coli - Macrobid as outpatient 12/29, Ceftriaxone started 12/30, broadened to Zosyn on 12/30 after blood culture + Status: Acute (3) Pyelonephritis: Problem details: - noted on imaging 12/30 Status: Acute (4) Bacteremia: Problem details: - positive admission blood culture for GNRs, presumably E Coli from urine - on Zosyn (12/30) Status: Acute (5) Hypotension: Problem details: - noted in ED, asymptomatic. No tachycardia, tachypnea, or fever to suggest sepsis - baseline BPs are low per chart review Status: Acute (6) Hypokalemia: Problem details: - replace and follow, normal on hospital day 1 Status: Acute Plan - continue Zosyn - await formal blood culture ID and sensitivities - anticipate home with in the next 1-2 days - Ramirez updated at bedside, questions answered Subjective Date Seen: 12/31/22 Interval history: No acute events overnight. One admission blood culture + for GNR. BP intermittently low (asymptomatic), no tachycardia or fevers, no tachypnea. Tolerating IV Zosyn. Mild heartburn, no other concerns for hospitalist this morning. Exam Narrative: Exam Narrative: GEN: Alert and oriented, sitting comfortably in bed, appears nontoxic HEENT: EOMIs bilaterally, no scleral icterus CV: RRR, No concerning murmurs, rubs, or gallops R: LCTA bilaterally without concerning wheezing, air movement is adequate Abdomen: Soft, no masses, hyperactive bowel sounds Ext: wwp, no concerning edema Skin: No concerning skin lesions or rashes on exposed skin Neuro: Nonfocal Psych: Appropriate Const: Vital Signs, click to edit/add: Vital Signs - 24 hr 12/30/22 09:29 12/30/22 09:40 12/30/22 09:45 Temperature 99.0 F Pulse Rate Pulse Rate [Pulse Oximeter] 111 H Pulse Rate [orthos tatic lying] 96 Pulse Rate [orthos tatic sitting] 108 H Pulse Rate [orthos tatic standing] 117 H Respiratory Rate 16 Blood Pressure [Le ft Arm] Blood Pressure [Ri ght Upper Arm] 113/58 L Blood Pressure [or thostatic lying] 104/53 L Blood Pressure [or thostatic sitting] 89/53 L Blood Pressure [or thostatic standing ] 76/48 L Pulse Oximetry 95 94 Oxygen Delivery Me thod Room Air 12/30/22 09:46 12/30/22 10:00 12/30/22 10:13 Temperature Pulse Rate Pulse Rate [Pulse Oximeter] 83 Pulse Rate [orthos tatic lying] Pulse Rate [orthos tatic sitting] Pulse Rate [orthos tatic standing] Respiratory Rate Blood Pressure [Le ft Arm] Blood Pressure [Ri ght Upper Arm] 96/58 L 95/50 L Blood Pressure [or thostatic lying] Blood Pressure [or thostatic sitting] Blood Pressure [or thostatic standing ] Pulse Oximetry 95 Oxygen Delivery Nv thod Room Air 12/30/22 10:17 12/30/22 10:31 12/30/22 11:00 Temperature Pulse Rate Pulse Rate [Pulse Oximeter] 83 82 87 Pulse Rate [orthos tatic lying] Pulse Rate [orthos tatic sitting] Pulse Rate [orthos tatic standing] Respiratory Rate Blood Pressure [Le ft Arm] Blood Pressure [Ri ght Upper Arm] 97/54 L 101/53 L 123/61 Blood Pressure [or thostatic lying] Blood Pressure [or thostatic sitting] Blood Pressure [or thostatic standing ] Pulse Oximetry 96 97 99 Oxygen Delivery Nv thod Room Air Room Air Room Air 12/30/22 11:46 12/30/22 12:14 12/30/22 12:14 Temperature 97.9 F Pulse Rate Pulse Rate [Pulse Oximeter] 79 86 Pulse Rate [orthos tatic lying] Pulse Rate [orthos tatic sitting] Pulse Rate [orthos tatic standing] Respiratory Rate 16 Blood Pressure [Le ft Arm] 110/59 L Blood Pressure [Ri ght Upper Arm] 104/51 L Blood Pressure [or thostatic lying] Blood Pressure [or thostatic sitting] Blood Pressure [or thostatic standing ] Pulse Oximetry 95 97 96 Oxygen Delivery Nv thod Room Air Room Air Room Air 12/30/22 13:21 12/30/22 15:00 12/30/22 15:00 Temperature 98.4 F Pulse Rate 80 Pulse Rate [Pulse Oximeter] 70 Pulse Rate [orthos tatic lying] Pulse Rate [orthos tatic sitting] Pulse Rate [orthos tatic standing] Respiratory Rate 18 Blood Pressure [Le ft Arm] 97/57 L Blood Pressure [Ri ght Upper Arm] Blood Pressure [or thostatic lying] Blood Pressure [or thostatic sitting] Blood Pressure [or thostatic standing ] Pulse Oximetry 97 97 Oxygen Delivery Me thod Room Air 12/30/22 15:00 12/30/22 19:00 12/30/22 23:30 Temperature 98.2 F Pulse Rate Pulse Rate [Pulse Oximeter] 70 64 63 Pulse Rate [orthos tatic lying] Pulse Rate [orthos tatic sitting] Pulse Rate [orthos tatic standing] Respiratory Rate 18 18 18 Blood Pressure [Le ft Arm] 89/47 L Blood Pressure [Ri ght Upper Arm] Blood Pressure [or thostatic lying] Blood Pressure [or thostatic sitting] Blood Pressure [or thostatic standing ] Pulse Oximetry 94 Oxygen Delivery Nv thod Room Air 12/30/22 23:30 12/30/22 23:30 12/31/22 03:20 Temperature 98.2 F 98.1 F Pulse Rate Pulse Rate [Pulse Oximeter] 63 67 Pulse Rate [orthos tatic lying] Pulse Rate [orthos tatic sitting] Pulse Rate [orthos tatic standing] Respiratory Rate 16 16 16 Blood Pressure [Le ft Arm] 91/47 L 100/55 L Blood Pressure [Ri ght Upper Arm] Blood Pressure [or thostatic lying] Blood Pressure [or thostatic sitting] Blood Pressure [or thostatic standing ] Pulse Oximetry 97 97 95 Oxygen Delivery Nv thod Room Air Room Air Room Air Labs Labs: Laboratory Results - last 24 hr 12/30/22 12/30/22 12/31/22 09:15 09:25 06:20 WBC 17.08 H 10.81 RBC 4.12 3.06 L Hgb 12.5 9.4 L Hct 37.3 28.5 L MCV 91 93 MCH 30 31 MCHC 34 33 RDW Coeff of Stanislaw 12.3 12.9 Plt Count 213 206 Neut % (Auto) 92.5 H 88.0 H Lymph % (Auto) 2.6 L 6.5 L [place] % (Auto) 3.7 4.9 Eos % (Auto) 0.0 0.2 Baso % (Auto) 0.1 0.2 Neut # (Auto) 15.80 H 9.50 H Lymph # (Auto) 0.40 L 0.70 L [place] # (Auto) 0.60 0.50 Eos # (Auto) 0.00 0.02 Baso # (Auto) 0.00 0.02 Abs Immat Gran (auto) 0.20 0.02 Imm/Tot Granulo (auto) 1.1 0.2 INR 1.08 D-Dimer Quant (PE/DVT) 5.34 H Sodium 133 L 138 Potassium 3.1 L 3.8 Chloride 101 108 Carbon Dioxide 21 26 Anion Gap 11 4 L BUN 18 14 Creatinine 0.8 0.6 Estimated Creat Clear 40.21 40.21 Estimated GFR 77 94 Glucose 142 H 92 Lactate 1.4 0.8 Calcium 8.8 7.8 L Total Bilirubin 1.0 Direct Bilirubin 0.0 AST 25 ALT 19 Alkaline Phosphatase 67 Lactate Dehydrogenase 235 C-Reactive Protein 5.2 H 7.6 H Total Protein 6.9 Albumin 4.0 Urine Color Dark yellow Urine Appearance Clear Urine pH 7.5 Ur Specific [place] 1.020 Urine Protein 3+ A Urine Glucose (UA) Negative Urine Ketones Trace A Urine Blood 3+ A Urine Nitrite Positive A Urine Bilirubin 1+ A Urine Urobilinogen 1.0 Ur Leukocyte Esterase 3+ A Urine RBC 50-100 A Urine WBC >100 A Ur Squamous Epith Cells Few Urine Bacteria Moderate A
[2022-12-31] MEDS: ACETAMINOPHEN 325 MG TABLET 975 MG PO ×2 (10:04→23:44)
--- NOTE | 2022-12-31 14:30 | PC.NURSE ---
Pt UAL in room. Please see eMar for medications provided. Pt treated for UTI with IV Zosyn. Maintenance IVF continues. Tylenol prn given once to promote rest. COVID positive patient, remains on strict contact precautions. Adequate I & O. Report will be provided to oncoming shift RN.
[2022-12-31] MEDS: FAMOTIDINE 20 MG TABLET PO (19:30)
[2022-12-31] MEDS: ENOXAPARIN 40 MG/0.4 ML INJ SUBCUT (21:22)
[2022-12-31] MEDS: diphenhydrAMINE 25 MG CAPSULE PO (21:22)
--- NOTE | 2022-12-31 21:40 | PC.NURSE ---
Pt alert and oriented. Pt independent in room. Pt had no complaints of pain. VSS.?No complaints of SOB.
[2023-01-01 00:48] VITALS: TEMP 37.4
[2023-01-01 00:49] VITALS: TEMP 37.4
[2023-01-01 03:00] VITALS: BP 117/55; PULSE 81; RESP 18; TEMP 37.1; O2SAT 94
[2023-01-01] MEDS: PIPERACILLIN/TAZOBACTAM 3.375 GM in 0.9 % SODIUM CHLORIDE Mini-bag 100 ML IVPB (03:21)
[2023-01-01] MEDS: 0.9 % SODIUM CHLORIDE 1000 ml 1,000 ML 125 ML IV (05:40)
--- NOTE | 2023-01-01 06:22 | PC.NURSE ---
End of shift: PT A&O pleasant and cooperative. Temp of 100.4 at 2345, Tylenol given. Recheck temp 99.4. VSS otherwise stable. Denies pain. Ind in room. Up at lb. Call light and personal items within reach.
[2023-01-01 06:42] LABS: Basophils Percent Auto 0.3 % (0.0-3.0); Eosinophils Percent Auto 0.5 % (0.0-7.0); Hematocrit 30.4 % (33.0-51.0); Immature Granulocytes Pct Auto 0.3 %; Lymphocytes Percent Auto 19.5 % (20-44); Mean Corpuscular HGB Conc 33 gm/dL (32-36); Mean Corpuscular Hemoglobin 30 pg (26-34); Mean Corpuscular Volume 92 fL (80-100); Monocytes Percent Auto 7.6 % (0.0-11.0); Neutrophils Percent Auto 71.8 % (42.0-72.0); Platelet Count* 201 K/uL (140-440); RDW Coefficient of Variation % 12.9 % (11.5-15.5)
[2023-01-01 06:46] LABS: Slide Review Reflex No
[2023-01-01 06:59] LABS: Chloride* 112 mmol/L (96-114)
[2023-01-01 07:00] LABS: Potassium* 3.5 mmol/L (3.6-5.1); Sodium* 139 mmol/L (135-149)
[2023-01-01 07:03] LABS: Anion Gap 4 mEq/L (7-15); Blood Urea Nitrogen* 8 mg/dL (7-30); Carbon Dioxide* 23 mmol/L (20-32); Creatinine* 0.6 mg/dL (0.5-1.5); Est. Creatinine Clearance* 40.21; Estimated Glomerular Filt Rate 94 ml/min; Glucose* 86 mg/dL (60-115)
[2023-01-01 07:04] LABS: Calcium* 8.3 mg/dL (8.4-10.6)
[2023-01-01 07:06] LABS: C Reactive Protein* 4.8 mg/dL (0.5-1.0)
[2023-01-01 07:37] VITALS: BP 126/73; PULSE 63; RESP 16; TEMP 36.6; O2SAT 97
[2023-01-01] MEDS: AMOXICILLIN 250 MG CAPSULE 500 MG PO (08:54)
[2023-01-01] MEDS: FAMOTIDINE 20 MG TABLET PO (08:54)
--- NOTE | 2023-01-01 09:51 | PM.DS1 ---
DS: Providers Provider Date Seen: 01/01/23 Date of admission: 12/30/22 18:01 Primary care physician: Nayeli Melgar MD Admitting Clinician: Jim Early MD Attending Physician on discharge: Nat Rosario MD Date of Discharge: 01/01/23 DS: Diagnosis Discharge Diagnosis (1) Pyelonephritis: Status: Acute Problem details: - noted on imaging 12/30. Treated with piperacillin tazobactam and ceftriaxone. (2) Bacteremia: Status: Acute Problem details: Blood culture positive for pansensitive E coli. Treated with piperacillin tazobactam and ceftriaxone in the hospital (3) LLQ pain: Status: Acute Problem details: CT scan of the abdomen pelvis unremarkable except for the finding of pyelonephritis (4) Hypokalemia: Status: Acute Problem details: - replace and follow, normal on hospital day 1 (5) COVID-19: Status: Acute Problem details: - weakness as primary symptom, self-tested positive on 12/25/22 - no hypoxia, requiring no COVID specific therapies, asymptomatic for COVID specific symptoms during hospital stay DS: Summary Hospital Course Hospital Course: 77-year-old female admitted to the hospital with urinary tract infection, fatigue and dizziness. Prior to admission she had mild COVID symptoms and a positive COVID test. At the time of admission she was felt to have pyelonephritis as the primary cause of her illness, not COVID. She was treated with ceftriaxone and is piperacillin tazobactam for total of 3 days of IV antibiotics. Blood and urine cultures grew out pansensitive E coli. CT of the abdomen pelvis showed left pyelonephritis. She did not have significant COVID specific symptoms during her hospital stay. She is feeling much better and anxious to go home. Status at Discharge Functional status at discharge: independent ambulation Overall status at discharge: patient is progressing back to baseline Time Spent with Patient Time attestation: Total time spent providing and/or coordinating discharge services: Time spent: Greater than 30 minutes Exam Narrative: Exam Narrative: She is alert and appears in no distress. Vital signs are normal. She is ambulating independently in her room. Const: Vital Signs, click to edit/add: Vital Signs - 24 hr 12/31/22 10:00 12/31/22 12:15 12/31/22 15:15 Temperature 98.7 F Pulse Rate [Pulse Oximeter] 64 Respiratory Rate 16 16 Blood Pressure [Le ft Arm] 97/61 Pulse Oximetry 97 99 99 Oxygen Delivery Me thod Room Air Room Air 12/31/22 15:15 12/31/22 18:38 12/31/22 23:38 Temperature 98.8 F 98.4 F 100.4 F H Pulse Rate [Pulse Oximeter] 65 85 84 Respiratory Rate 16 16 18 Blood Pressure [Le ft Arm] 100/57 L 111/54 L 122/70 Pulse Oximetry 99 98 93 Oxygen Delivery Me thod Room Air Room Air Room Air 12/31/22 23:41 01/01/23 00:48 01/01/23 00:49 Temperature 99.4 F 99.4 F Pulse Rate [Pulse Oximeter] Respiratory Rate 18 Blood Pressure [Le ft Arm] Pulse Oximetry 93 Oxygen Delivery Me thod Room Air 01/01/23 03:00 01/01/23 07:37 01/01/23 07:37 Temperature 98.7 F 97.9 F Pulse Rate [Pulse Oximeter] 81 63 Respiratory Rate 18 16 16 Blood Pressure [Le ft Arm] 117/55 L 126/73 Pulse Oximetry 94 97 97 Oxygen Delivery Me thod Room Air Room Air Room Air Documenting provider has reviewed patient's vital signs: yes DS: Data Data Completed and Pending Labs on day of discharge: Labs from last 24 hours 01/01/23 06:22 WBC 3.70 L RBC 3.30 L Hgb 10.0 L Hct 30.4 L MCV 92 MCH 30 MCHC 33 RDW Coeff of Stanislaw 12.9 Plt Count 201 Neut % (Auto) 71.8 Lymph % (Auto) 19.5 L [place] % (Auto) 7.6 Eos % (Auto) 0.5 Baso % (Auto) 0.3 Neut # (Auto) 2.70 Lymph # (Auto) 0.70 L [place] # (Auto) 0.30 Eos # (Auto) 0.00 Baso # (Auto) 0.00 Abs Immat Gran (auto) 0.00 Imm/Tot Granulo (auto) 0.3 Sodium 139 Potassium 3.5 L Chloride 112 Carbon Dioxide 23 Anion Gap 4 L BUN 8 Creatinine 0.6 Estimated Creat Clear 40.21 Estimated GFR 94 Glucose 86 Calcium 8.3 L C-Reactive Protein 4.8 H Preliminary micro results at discharge 12/30/22 10:00 Blood Culture - Preliminary Blood Escherichia coli 12/31/22 06:20 Blood Culture - Preliminary Blood NO GROWTH AFTER 24 HOURS 12/30/22 10:09 Blood Culture - Preliminary Blood NO GROWTH AFTER [address] scan - abdomen: Radiologist's impression: INDICATION: Left lower quadrant pain.. TECHNIQUE: CT abdomen and pelvis acquired with 62 cc Isovue 370 IV contrast. COMPARISON: None. FINDINGS: Lower chest: Bibasilar linear opacities likely atelectasis or scarring. Liver: Unremarkable. Normal in size and attenuation. No suspicious masses. Gallbladder and bile ducts: Unremarkable. No stones or inflammation. No biliary dilatation. Pancreas: Unremarkable. No mass or inflammation. Spleen: Multiple calcified granulomas in the spleen. Adrenal glands: Unremarkable. No nodules. Kidneys: Duplicated left collecting system. There wedge-shaped hyper enhancing lesions throughout the left kidney extending to the cortex. Possible mild thickening of the left ureter. GI tract: Unremarkable. Normal in caliber. No sign of mass or inflammation. Normal appendix. Vasculature: Abdominal aorta is normal in caliber. Mesenteric arteries are patent. Lymph nodes: No lymphadenopathy. Peritoneum/Abdominal Wall: Unremarkable. No sign of mass or infiltration. No free air or significant free fluid. Pelvis: Diffuse bladder wall thickening is noted. The bladder is partially collapsed. Bones: Unremarkable for age. IMPRESSION: Enhancing wedge-shaped lesions in the left kidney may be seen in the setting of interstitial nephritis suggest pyelonephritis. Alternately, this may be related to cortical necrosis and retention of contrast through the collecting system. Correlate with UA and urinary labs. Discharge Plan Discharge Disposition: Home, Self-Care Date of Admission: 12/30/22 18:01 Attending Provider on Discharge: Sha Ross Primary Care Provider: Nayeli Melgar Condition: Improved Anticipated Discharge Date/Time: 01/01/23 10:00 Discharge Medications: New amoxicillin 250 mg Capsule 500 mg PO TID Qty: 42 0RF Continued cholecalciferol (vitamin D3) 25 mcg (1,000 unit) capsule 25 mcg PO DAILY diphenhydramine HCl 25 mg capsule 25 mg PO HS calcium carbonate-vitamin D3 600 mg-5 mcg (200 unit) tablet 1 tab PO DAILY omega 1-lda-vnc-fish oil [Fish Oil] 1,000 mg (120 mg-180 mg) capsule 1 cap PO DAILY acetaminophen [Tylenol Extra Strength] 500 mg tablet 500 mg PO HS Discontinued nitrofurantoin monohyd/m-cryst 100 mg capsule 100 mg PO BID 5 Days Qty: 10 0RF Rx Instructions: must administer with a meal/food Discharge Orders: Discharge Order (Routine); Ordered 01/01/23 Ordered By: Sha Ross Patient Education: Amoxicillin (By mouth), Kidney Infection (DC) Additional Instructions: You have a kidney infection caused by E coli. This did get into your blood stream as well. The E coli is susceptible to all the tested antibiotics. You have received 3 days of IV antibiotics and will take 1 more week of oral amoxicillin. You should continue to feel better. Please call me at [phone] during the day if you are getting worse. Activity Level: Activity as Tolerated Discharge Diet: Regular Follow Up Appointments: Nayeli Melgar MD [Primary Care Provider] - Forms: [employer] Info Instructions
[2023-01-01] MEDS: cefTRIAXone 1 GM in 0.9 % SODIUM CHLORIDE Mini-bag 100 ML IVPB (10:17)
[2023-01-01 10:18] VITALS: BP 128/67; PULSE 66; RESP 16; TEMP 36.6; O2SAT 97
--- NOTE | 2023-01-01 11:22 | PC.NURSE ---
Pt alert and oriented. Pt independent in room. Pt had no complaints of pain. VSS. Pt?s IV removed at 1055am. Pt discharged home with .?
== END 2023-01-01 11:05 | disposition home or self-care (01) | DRG 689 ==
LOC: ED 11:11 → MEDSURG 11:57
PROVIDERS: Admitting Provider Family Medicine; Emergency Provider Family Medicine; PCP Family Medicine; Visit Provider Family Medicine
DX: N10 Acute pyelonephritis (principal); U07.1 COVID-19; R78.81 Bacteremia; R53.1 Weakness; I95.9 Hypotension, unspecified; E87.6 Hypokalemia; N15.9 Renal tubulo-interstitial disease, unspecified; B96.20 Unspecified Escherichia coli [E. coli] as the cause of diseases classified elsewhere
CPT/HCPCS: 36415; 71275; 74177; 80048; 80076; 81001; 83605; 83615; 85025; 85379; 85610; 86140; 87040; 87086; 87186; 93005; 94761; 97161; 97165; 99285; A9270; J0696; J1650; J2543; J7030; J7120; Q9967

== ENCOUNTER 2023-01-21 14:13 | Outpatient (CLI) | payer MEDICARE, BC, SELFPAY ==
--- NOTE | 2023-01-21 14:30 | CRLHL7_ITS ---
For Patients: As a result of the 21st Century Cures Act, medical imaging exams and procedure reports are released immediately into your electronic medical record. You may view this report before your referring provider. If you have questions, please contact your health care provider. INDICATION: Facet arthritis cervical region. TECHNIQUE: Multiplanar multisequence noncontrast MR images acquired through the cervical spine. COMPARISON: None. FINDINGS: The cervical lordosis is maintained. Mild rightward cervical curvature. No acute fracture. No T1 hypointense marrow replacing lesions. The cervical cord is normal in signal intensity. Advanced right atlantoaxial joint degenerative changes associated with extensive marrow edema within the right C1 and C2 lateral masses as well as involving the C2 vertebral body to a lesser degree. C2-3: Left facet joint ankylosis. No spinal canal or neural foraminal narrowing. C3-4: Advanced disc height loss with suggested vertebral body ankylosis. Right facet ankylosis. Moderate left facet arthropathy. No spinal canal or neural foraminal narrowing. C4-5: Advanced disc height loss with suggested vertebral body ankylosis. Left facet joint ankylosis. Pfbp-vj-xsvomihk facet arthropathy. No spinal canal or neural foraminal narrowing. C5-6: Trace retrolisthesis. Advanced disc height loss. Posterior disc osteophyte complex. Thickening ligamentum flavum. Left greater than right uncinate spurring. Moderate left and wwhv-tb-vervwdfk right facet arthropathy. Mild spinal canal narrowing. Rxyt-ng-zenufwdu left and mild right neural foraminal narrowing. C6-7: Moderately advanced disc height loss. Mild vertebral body edema. Shallow posterior disc bulge. Moderate left and mild right facet arthropathy. No spinal canal or neural foraminal narrowing. C7-T1: Trace anterolisthesis. Left facet ankylosis. Ctew-ep-fkwdhgqt right facet arthropathy. No spinal canal or neural foraminal narrowing. T1-2: Moderately advanced left facet arthropathy. No spinal canal or neural foraminal narrowing. IMPRESSION: 1. Multilevel cervical spondylosis without spinal canal stenosis. 2. Advanced right atlantoaxial joint degenerative changes associated with extensive marrow edema within the right C1 and C2 lateral masses as well as involving the C2 vertebral body to a lesser degree. Findings are compatible with a stress response. 3. Mild to moderate left and mild right neural foraminal narrowing at C5-6. Dictated by Christophe Simental MD @ 01/21/2023 9:50:35 PM (Electronically Signed)
== END 2023-01-21 14:14 | disposition home or self-care (01) ==
LOC: MRI 14:15
PROVIDERS: PCP Family Medicine; Visit Provider Physical Medicine & Rehabilitation Pain Medicine
DX: M47.812 Spondylosis without myelopathy or radiculopathy, cervical region (principal); M50.222 Other cervical disc displacement at C5-C6 level
CPT/HCPCS: 72141

== ENCOUNTER 2023-01-23 10:50 | Outpatient (CLI) | payer MEDICARE, BC, SELFPAY | END 2023-01-23 10:51 | disposition home or self-care (01) | LOC: NFLDREF 01-28 11:27 | PROVIDERS: PCP Family Medicine; Referring Provider Family Medicine; Visit Provider Family Medicine | DX: R30.0 Dysuria (principal); N39.0 Urinary tract infection, site not specified; Z86.19 Personal history of other infectious and parasitic diseases | CPT/HCPCS: 87086; 87186 ==

== ENCOUNTER 2023-02-10 07:03 | Outpatient (CLI) | payer MEDICARE, BC, SELFPAY | END 2023-02-10 07:04 | disposition home or self-care (01) | LOC: NFLDREF 07:04 | PROVIDERS: PCP Family Medicine; Visit Provider Family Medicine | DX: N39.0 Urinary tract infection, site not specified (principal) | CPT/HCPCS: 87086 ==

== ENCOUNTER 2023-03-16 13:00 | Outpatient (RCR) | payer MEDICARE, BC, SELFPAY | END 2023-04-22 13:12 | disposition home or self-care (01) | PROVIDERS: PCP Family Medicine; Visit Provider Physical Medicine & Rehabilitation Pain Medicine | DX: M47.812 Spondylosis without myelopathy or radiculopathy, cervical region (principal); M54.2 Cervicalgia; M25.60 Stiffness of unspecified joint, not elsewhere classified; Z51.89 Encounter for other specified aftercare | CPT/HCPCS: 97110; 97140; 97161 ==

== ENCOUNTER 2023-08-28 08:20 | Outpatient (CLI) | payer MEDICARE, BC, SELFPAY ==
--- OUTSIDE RECORDS SUMMARY | 2023-09-21 08:30 | XMS_ITS | Clinical Summary ---
Author Name Unknown Organization [facility] Address [place], [place] [address] Care Team Providers Care Logistics Engineering Manager Name Role Phone Nayeli Melgar MD Primary Care Provider + Allergies No known active allergies Medications Medication Sig Dispensed Refills Start Date End Date Status cholecalciferol (VITAMIN D) 1,000 unit tablet Take 1 tablet by mouth once daily. 0 07/01/2012 Active ascorbic acid (VITAMIN C) 1,000 mg tablet Take 1 tablet by mouth once daily. 0 07/01/2012 Active omega-3 fatty acids-vitamin E (FISH OIL) 1,000 mg cap Take by mouth. twice daily 0 07/01/2012 Active alendronate (FOSAMAX) 70 mg tablet Take 1 tablet by mouth once a week in the morning. Take on empty stomach with full glass of water. Do not lie down for 1 hr. Has not started yet. 0 07/01/2012 Active MISCELLANEOUS MEDICAL SUPPLY (GRADUATED COMPRESSION STOCKINGS)Indication s:Varicose veins of leg with complications 20-30 mm/Hg thigh high compression stockings - Venous insufficiency 6 Packet prn 07/22/2012 Active Active Problems Problem Noted Date Diagnosed Date Varicose veins of leg with complications 013 Venous insufficiency 07/01/2012 High risk for fracture due to osteoporosis by DE XA scan 07/01/2012 Encounters Date Type Department Care Team Description 09/14/2023 12:30 PM CDT Procedure Only [facility] [address] [place] [address] Tran Don L Ac Acupuncture 09/14/2023 Travel 09/04/2023 11:30 AM CDT Procedure Only [facility] [address] [place] [address] Tran Don, Micheal Ac Acupuncture 09/04/2023 Travel 08/24/2023 10:00 AM CDT Procedure Only [facility] [address] [place] [address] Tran Don, Micheal Ac Acupuncture 08/24/2023 Travel 08/17/2023 1:00 PM CDT Procedure Only [facility] [address] [place] [address] Tran Don, Micheal Ac Acupuncture 08/17/2023 Travel 08/10/2023 2:30 PM CDT Procedure Only [facility] [address] [place] [address] Tran Don, Micheal Ac Acupuncture 08/10/2023 Travel 08/03/2023 2:00 PM CDT Procedure Only [facility] [address] [place] [address] Tran Don, Micheal Ac Acupuncture 08/03/2023 Travel 07/27/2023 2:00 PM CDT Procedure Only [facility] [address] [place] [address] Tran Don, Micheal Ac Acupuncture 07/27/2023 Travel 07/13/2023 1:30 PM CDT Procedure Only [facility] [address] [place] [address] Tran Don, Micheal Ac Acupuncture 07/13/2023 Travel 07/06/2023 1:30 PM SPEECH INSTRUCTOR Procedure Only [facility] [address] [place] [address] Tran Don, Micheal Ac Acupuncture (Initial) 07/06/2023 Travel from Last 3 Months Social History Tobacco Use Types Packs/Day Years Used Date Smoking Tobacco: Never Sex and Gender Information Value Date Recorded Sex Assigned at Not on file Gender Identity Not on file Sexual Orientation Not on file Obstetrics History Last Filed Vital Signs Vital Sign Reading Time Taken Comments Blood Pressure 110/72 07/01/2012 10:19 AM SPEECH INSTRUCTOR Pulse 62 07/01/2012 10:19 AM SPEECH INSTRUCTOR Temperature - - Respiratory Rate - - Oxygen Saturation - - Inhaled Oxygen Concentration - - Weight 55.8 kg (123 lb) 08/17/2012 12:00 PM CDT Height 160 cm (5' 3) 08/17/2012 12:00 PM CDT Body Mass Index 21.79 08/17/2012 12:00 PM CDT Plan of Treatment Upcoming Encounters Date Type Department Care Team (Late st Contact Info) Description 09/25/2023 12:30 PM CDT Procedure Only [facility] [address] [place] [address] Tran Don, L Ac [address] [place] [address] 10/09/2023 12:30 PM CDT Procedure Only [facility] [address] [place] [address] Tran Don, L Ac [address] [place] [address] Health Maintenance Due Date Last Done Comments Tdap 1958 Depression screening for age 12+ 1959 BMI (ht and wt on same day) for age 18+ 1965 Hepatitis C screening for ag e 18-79 1965 Tetanus booster 1967 Zoster (shingles) series for age 50+ (1 of 2) 1997 DEXA/DXA scan for age 65+ 02/23/2012 Medicare Wellness for age 65+ 02/23/2012 Pneumococcal series for age 65+ (1 of 1 - PCV) 02/23/2012 Influenza for age 65+ 01/03/2024 COVID-19 vaccine series Completed 03/20/20, 11/10/2022, 01/20/2022, Additional history exists Procedures Procedure Name Priority Date/Time Associated Diagnosis Comments ACUPUNCTURE PLAN OF CARE Routine 024 12:28 PM CDT Neck pain ACUPUNCTURE PLAN OF CARE Routine 024 11:26 AM CDT Neck pain ACUPUNCTURE PLAN OF CARE Routine 08/24/2023 9:58 AM CDT Neck pain ACUPUNCTURE PLAN OF CARE Routine 024 12:57 PM CDT Neck pain ACUPUNCTURE PLAN OF CARE Routine 08/10/2023 2:28 PM CDT Neck pain ACUPUNCTURE PLAN OF CARE Routine 08/03/2023 1:59 PM CDT Neck pain ACUPUNCTURE PLAN OF CARE Routine 07/27/2023 1:58 PM CDT Neck pain ACUPUNCTURE PLAN OF CARE Routine 07/13/2023 1:30 PM CDT Neck pain from Last 3 Months Care Teams Logistics Engineering Manager Relationship Specialty Start Date End Date Nayeli Melgar MD [address] [place] [address] PCP - General Family Practice 06/11/23
== END 2023-08-28 08:21 | disposition home or self-care (01) ==
LOC: NFLDREF 09-21 08:29
PROVIDERS: PCP Family Medicine; Referring Provider Family Medicine; Visit Provider Family Medicine
DX: E78.5 Hyperlipidemia, unspecified (principal); Z13.228 Encounter for screening for other metabolic disorders
CPT/HCPCS: 80053; 80061

== ENCOUNTER 2023-11-20 13:08 | Outpatient (CLI) | payer MEDICARE, BC, SELFPAY ==
--- OUTSIDE RECORDS SUMMARY | 2023-11-20 13:10 | XMS_ITS | Clinical Summary ---
Author Organization [facility] Address [place], [place] [address] Care Team Providers Care Shoe Stainer Name Role Phone Nayeli Melgar MD Primary [...] Encounters Date Type Department Care Team Description 11/16/2023 10:30 AM CDT Procedure Only [facility] [address] [place] [address] Tran Don L Ac Acupuncture 11/16/2023 Travel 11/09/2023 10:30 AM CDT Procedure Only [facility] [address] [place] [address] Tran Don, Micheal Ac Acupuncture 11/09/2023 Travel 10/23/2023 11:00 AM CDT Procedure Only [facility] [address] [place] [address] Tran Don, Micheal Ac Acupuncture 10/23/2023 Travel 10/09/2023 12:30 PM CDT Procedure Only [facility] [address] [place] [address] Tran Don, Micheal Ac Acupuncture 10/09/2023 Travel 09/25/2023 12:30 PM CDT Procedure Only [facility] [address] [place] [address] Tran Don, Micheal Ac Acupuncture 09/25/2023 Travel 09/14/2023 12:30 PM CDT Procedure Only [facility] [address] [place] [address] Tran Don, Micheal Ac Acupuncture 09/14/2023 Travel 09/04/2023 11:30 AM CDT Procedure Only [facility] [address] [place] [address] Tran Don, Micheal Ac Acupuncture 09/04/2023 Travel 08/24/2023 10:00 AM CDT Procedure Only [facility] [address] [place] [address] Tran Don, Micheal Ac Acupuncture 08/24/2023 Travel from Last 3 Months Social History Tobacco Use Types Packs/Day Years Used Date Smoking Tobacco: Never Sex and Gender Information Value Date Recorded Sex Assigned at Not on file Gender Identity Not on file Sexual Orientation Not on file Obstetrics History Last Filed Vital Signs Vital Sign Reading Time Taken Comments Blood Pressure 110/72 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 Pulse 62 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 Temperature - - Respiratory Rate - - Oxygen Saturation - - Inhaled Oxygen Concentration - - Weight 55.8 kg (123 lb) 08/17/2012 12:00 PM CDT Height 160 cm (5' 3) 08/17/2012 12:00 PM CDT Body Mass Index 21.79 08/17/2012 12:00 PM CDT Plan of Treatment Upcoming Encounters Date Type Department Care Team (Late st Contact Info) Description 11/30/2023 1:00 PM CDT Procedure Only [facility] [address] [place] [address] Tran Don, Micheal [address] [place] [address] Health Maintenance Due Date Last Done Comments [...] 65+ (1 of 1 - PCV) 02/23/2012 COVID-19 vaccine series (2022- season) 2023 03/20/2023, 11/10/2022, 01/20/2022, Additional history exists Influenza for age 65+ 01/03/2024 Procedures Procedure Name Priority Date/Time Associated Diagnosis Comments ACUPUNCTURE PLAN OF CARE Routine 024 10:59 AM CDT Neck pain ACUPUNCTURE PLAN OF CARE Routine 024 11:16 AM CDT Neck pain ACUPUNCTURE PLAN OF CARE Routine 024 11:00 AM CDT Neck pain ACUPUNCTURE PLAN OF CARE Routine 024 12:26 PM CDT Neck pain ACUPUNCTURE PLAN OF CARE Routine 024 12:31 PM CDT Neck pain ACUPUNCTURE PLAN OF CARE Routine 024 12:28 PM CDT Neck pain ACUPUNCTURE PLAN OF CARE Routine 024 11:26 AM CDT Neck pain ACUPUNCTURE PLAN OF CARE Routine 08/24/2023 9:58 AM CDT Neck pain from Last 3 Months Care Teams Shoe Stainer Relationship Specialty Start Date End Date Nayeli Melgar MD [address] [place] [address] PCP - General Family Practice 06/11/23
--- NOTE | 2023-11-20 13:20 | CRLHL7_ITS ---
For Patients: As a result of the Century Cures Act, medical imaging exams and procedure reports are released immediately into your electronic medical record. You may view this report before your referring provider. If you have questions, please contact your health care provider. BILATERAL SCREENING MAMMOGRAM WITH COMPUTER-AIDED DETECTION AND TOMOSYNTHESIS TECHNIQUE: CC and MLO views were obtained. These mammographic images have been obtained using full-field digital technique. These mammographic images were interpreted with the benefit of computer-aided detection. Breast Tomosynthesis was used in this interpretation. COMPARISON FILM: 04/11/22, 01/28/21, 01/17/20. FINDINGS: The breasts are heterogeneously dense, which may obscure small masses. IMPRESSION: There is no radiographic evidence for malignancy. ASSESSMENT: BI-RADS Category 1: Negative RECOMMENDATION: Routine screening mammogram in 1 year. A lay language report of this examination will be provided to the patient. Braydon Florez M.D. Diagnostic Radiologist [email or web address] SP/Dictated by: Braydon Florez MD @ 11/23/2023 9:23:00 AM (Electronically Signed)
== END 2023-11-20 13:09 | disposition home or self-care (01) ==
LOC: MAMMO 13:09
PROVIDERS: PCP Family Medicine; Visit Provider Family Medicine
DX: Z12.31 Encounter for screening mammogram for malignant neoplasm of breast (principal); R92.2 Inconclusive mammogram
CPT/HCPCS: 77063; 77067

== ENCOUNTER 2024-01-22 13:35 | Outpatient (CLI) | payer MEDICARE, BC, SELFPAY ==
--- OUTSIDE RECORDS SUMMARY | 2024-01-22 13:37 | XMS_ITS | Clinical Summary ---
Author Organization [facility] Address [place], [place] [address] Care Team Providers Care Tattoo And Body Artist Name Role Phone Nayeli Melgar MD Primary [...] Description 11/16/2023 10:30 AM CDT Procedure Only [facility] [address] [place] [address] Tran Don L Ac Acupuncture 11/16/2023 Travel 11/09/2023 10:30 AM CDT Procedure Only [facility] [address] [place] [address] Tran Don L Ac Acupuncture 11/09/2023 Travel 10/23/2023 11:00 AM CDT Procedure Only [facility] [address] [place] [address] Tran Don L Ac Acupuncture 10/23/2023 Travel from Last 3 Months Social History Tobacco Use Types Packs/Day Years Used Date Smoking Tobacco: Never Sex and Gender Information Value Date Recorded Sex Assigned at Not on file Gender Identity Not on file Sexual Orientation Not on file Obstetrics History Last Filed Vital Signs Vital Sign Reading Time Taken Comments Blood Pressure 110/72 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 Pulse 62 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 Temperature - - Respiratory Rate - - Oxygen Saturation - - Inhaled Oxygen Concentration - - Weight 55.8 kg (123 lb) 08/17/2012 12:00 PM CDT Height 160 cm (5' 3) 08/17/2012 12:00 PM CDT Body Mass Index 21.79 08/17/2012 12:00 PM CDT Plan of Treatment Upcoming Encounters Date Type Department Care Team (Latest Contact Info) Description 02/02/2024 11:35 AM CDT Hospital Encounter [facility] [address] [place] [address] Adam Rosales MD [address] [place] [address] 02/02/2024 11:35 AM CDT - 02/02/2024 2:41 PM CDT Surgery [facility] [address] [place] [address] Adam Rosales MD [address] [place] [address] CERVICAL 1 - CERVICAL 2 POSTERIOR INSTRUMENTED FUSION Scheduled Procedures Name Priority Associated Diagnoses Date/Ti me FUSION POSTERIOR CERVICAL LEVEL 01 Elective FACET ARTHRITIS OF CERVICAL REGION 02/02/2024 11:35 AM CDT Health Maintenance Due Date Last Done Comments Tdap 1958 Depression screening for age 12+ 1959 BMI (ht and wt on same day) for age 18+ 1965 Hepatitis C screening for ag e 18-79 1965 Tetanus booster 1967 Zoster (shingles) series for age 50+ (1 of 2) 1997 RSV vaccine for adults or (1 - 1-dose 60+ series) 2007 DEXA/DXA scan for age 65+ 02/23/2012 Medicare Wellness for age 65+ 02/23/2012 Pneumococcal series for age 65+ (1 of 1 - PCV) 02/23/2012 COVID-19 vaccine series (2022-24 season) 2024 03/20/2023, 11/10/2022, 01/20/2022, Additional history exists Influenza for age 65+ 01/03/2024 Procedures Procedure Name Priority Date/Time Associated Diagnosis Comments ACUPUNCTURE PLAN OF CARE Routine 024 10:59 AM CDT Neck pain ACUPUNCTURE PLAN OF CARE Routine 024 11:16 AM CDT Neck pain ACUPUNCTURE PLAN OF CARE Routine 024 11:00 AM CDT Neck pain from Last 3 Months Care Teams Tattoo And Body Artist Relationship Specialty Start Date End Date Nayeli Melgar MD [address] [place] [address] PCP - General Family Practice 06/11/23
--- NOTE | 2024-01-22 13:45 | CRLHL7_ITS ---
For Patients: As a result of the Century Cures Act, medical imaging exams and procedure reports are released immediately into your electronic medical record. You may view this report before your referring provider. If you have questions, please contact your health care provider. INDICATION: Neck pain. COMPARISON: 01/21/2023. TECHNIQUE: Sagittal T1, T2, and STIR sequences. Axial T2/gradient sequences. FINDINGS: Normal vertebral body facet alignment. No fractures. No vertebral body loss of height. No spondylosis. No ligamentous injury. No suspicious osseous lesions. Normal cord signal. No intradural mass lesion. There is stable marrow edema of the articulation of C1 and C2 on the right. C1-2: No spinal canal narrowing. C2-3 C3-4: No spinal canal neural foraminal narrowing. C4-5: No splenic no neural foraminal narrowing. C5-6: Disc degeneration. Posterior disc bulge or disc osteophyte complex. Mild narrowing of the spinal canal. Mild narrowing of the left neural foramen. No narrowing of the right neural foramen. C6-7: Disc degeneration. No spinal canal neural foraminal narrowing. C7-T1: No spinal canal or neural foraminal narrowing. No spinal canal or neural foraminal narrowing in the visualized upper thoracic spine. IMPRESSION: 1. Normal alignment. No fractures 2. Normal cord signal. 3. Stable marrow edema of the articulation of C1 and C2 on the right. Findings may be secondary to stress reaction or mild inflammation 4. At C5-6, mild narrowing of the spinal canal and left neural foramina Dictated by Scotty Worrell MD @ 01/23/2024 11:51:03 PM (Electronically Signed)
== END 2024-01-22 13:36 | disposition home or self-care (01) ==
LOC: MRI 13:35
PROVIDERS: PCP Family Medicine; Visit Provider Orthopaedic Surgery
DX: M54.2 Cervicalgia (principal); M50.222 Other cervical disc displacement at C5-C6 level; M47.812 Spondylosis without myelopathy or radiculopathy, cervical region
CPT/HCPCS: 72141

== ENCOUNTER 2024-01-27 10:15 | Outpatient (CLI) | payer MEDICARE, BC, SELFPAY ==
--- OUTSIDE RECORDS SUMMARY | 2024-01-28 11:39 | XMS_ITS | Clinical Summary ---
Author Organization [facility] Address [place], [place] [address] Care Team Providers Care Steel Checker Name Role Phone Nayeli Melgar MD Primary [...] Description 11/16/2023 10:30 AM CDT Procedure Only [facility] [address] [place] [address] Tran Don L Ac Acupuncture 11/16/2023 Travel 11/09/2023 10:30 AM CDT Procedure Only [facility] [address] [place] [address] Tran Don L Ac Acupuncture 11/09/2023 Travel from Last 3 Months Social History Tobacco Use Types Packs/Day Years Used Date Smoking Tobacco: Never Sex and Gender Information Value Date Recorded Sex Assigned at Not on file Gender Identity Not on file Sexual Orientation Not on file Obstetrics History Last Filed Vital Signs Vital Sign Reading Time Taken Comments Blood Pressure 110/72 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 Pulse 62 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 Temperature - - Respiratory Rate - - Oxygen Saturation - - Inhaled Oxygen Concentration - - Weight 55.8 kg (123 lb) 08/17/2012 12:00 PM CDT Height 160 cm (5' 3) 08/17/2012 12:00 PM CDT Body Mass Index 21.79 08/17/2012 12:00 PM CDT Plan of Treatment Upcoming Encounters Date Type Department Care Team (Latest Contact Info) Description 02/02/2024 12:05 PM CDT Hospital Encounter [facility] [address] [place] [address] Adam Rosales MD [address] [place] [address] 02/02/2024 12:05 PM CDT - 02/02/2024 3:11 PM CDT Surgery [facility] [address] [place] [address] Adam Rosales MD [address] [place] [address] CERVICAL 1 - CERVICAL 2 POSTERIOR INSTRUMENTED FUSION Scheduled Procedures Name Priority Associated Diagnoses Date/Ti me FUSION POSTERIOR CERVICAL LEVEL 01 Elective FACET ARTHRITIS OF CERVICAL REGION 02/02/2024 12:05 PM CDT Health Maintenance Due Date Last Done [...] 65+ (1 of 1 - PCV) 02/23/2012 RSV vaccine for adults or (1 - 1-dose 75+ series) 2022 Influenza for age 65+ 01/03/2024 COVID-19 vaccine series ( season) 2024 01/14/2024, 03/20/2023, 11/10/2022, Additional history exists Procedures Procedure Name Priority Date/Time Associated Diagnosis Comments SCAN CORRESP-LABORATORY RESULTS 01/28/2024 10:06 AM CDT ACUPUNCTURE PLAN OF CARE Routine 11/16/2023 10:59 AM CDT Neck pain ACUPUNCTURE PLAN OF CARE Routine 11/09/2023 11:16 AM CDT Neck pain from Last 3 Months Results * SCAN CORRESP-LABORATORY RESULTS (01/28/2024 10:06 AM CDT) Narrative 01/28/2024 10:06 AM CDT Ordered by an unspecified provider. Other Clinical Staff OTHER from Last 3 Months Care Teams Steel Checker Relationship Specialty Start Date End Date Nayeli Melgar MD [address] [place] [address] PCP - General Family Practice 06/11/23
== END 2024-01-27 10:16 | disposition home or self-care (01) ==
LOC: NFLDREF 01-28 11:37
PROVIDERS: PCP Family Medicine; Referring Provider Family Medicine; Visit Provider Family Medicine
DX: Z01.812 Encounter for preprocedural laboratory examination (principal); E78.5 Hyperlipidemia, unspecified; M15.9 Polyosteoarthritis, unspecified
CPT/HCPCS: 80048

== ENCOUNTER 2024-02-23 13:55 | Outpatient (CLI) | payer MEDICARE, BC, SELFPAY ==
--- OUTSIDE RECORDS SUMMARY | 2024-02-25 09:44 | XMS_ITS | Clinical Summary ---
Author Organization [facility] Address [place], [place] [address] Care Team Providers Care Coin Rolling Machine Operator Name Role Phone Nayeli Melgar MD Primary Care Provider + Allergies Active Allergy Reactions Criticality Noted Date Comments Alendronate Sodium Other - Describe In Comment Field 02/01/2024 Severe heart burn Medications Medication Sig Dispensed Refills Start Date End Date Status cholecalciferol (VITAMIN D) 1,000 unit tablet Take 1 tablet by mouth once daily. 0 3 Active omega-3 fatty acids-vitamin E (FISH OIL) 1,000 mg cap Take by mouth once daily. twice daily 0 3 Active calcium carbonate-choleca lciferol, 600mg-200 units, (CALTRATE-600 + VIT D) tablet Take 1 Tablet by mouth once daily. Active ibuprofen (ADVIL; MOTRIN) 200 mg tablet Take 200 mg by mouth 4 times daily if needed. As instructed As needed Active valACYclovir (Valtrex) 1 gram tablet Take 2 g by mouth every 12 hours if needed. Active acetaminophen (TYLENOL EXTRA STRGTH) 500 mg tabletIndications :S/P cervical spinal fusion Take 2 Tablets (1,000 mg) by mouth every 6 hours if needed for Pain. Max acetaminophen dose: 4000mg in 24 hrs. 4 Active cyclobenzaprine (FLEXERIL) 10 mg tabletIndications :Postoperative pain after spinal surgery Take one-quarter to one-half tablet (2.5-5 mg) by mouth three times daily. 20 Tablet 4 Active oxyCODONE (ROXICODONE) 5 mg immediate release tabletIndications :S/P cervical spinal fusion Take 1-2 Tablets (5-10 mg) by mouth every 4 hours if needed for Pain (First choice for moderate to severe pain.). 20 Tablet 4 Active sennosides-docusa te (SENOKOT S) (8.6-50 mg) tabletIndications :Drug-induced constipation Take 1-4 Tablets by mouth at bedtime if needed for Constipation. 20 Tablet 4 Active ascorbic acid (VITAMIN C) 1,000 mg tablet Take 1,000 mg by mouth once daily if needed. 0 3 02/02/20 Discontinued(P harmacist change per medication history (E-cancel not sent)) alendronate (FOSAMAX) 70 mg tablet Take 1 tablet by mouth once a week in the morning. Take on empty stomach with full glass of water. Do not lie down for 1 hr. Has not started yet. 0 3 02/02/20 Discontinued(P harmacist change per medication history (E-cancel not sent)) MISCELLANEOUS MEDICAL SUPPLY (GRADUATED COMPRESSION STOCKINGS)Indicat ions:Varicose veins of leg with complications 20-30 mm/Hg thigh high compression stockings - Venous insufficiency 6 Packet prn 3 02/02/20 Discontinued(P harmacist change per medication history (E-cancel not sent)) acetaminophen (Tylenol Extra Strength) 500 mg tablet Take 500 mg by mouth at bedtime. Max acetaminophen dose: 4000mg in 24 hrs. 02/02/20 Discontinued(P harmacist change per medication history (E-cancel not sent)) diphenhydrAMINE (BENADRYL) 25 mg tablet Take 25 mg by mouth at bedtime. 02/02/20 Discontinued(P harmacist change per medication history (E-cancel not sent)) Active Problems Problem Noted Date Diagnosed Date Cervical spine arthritis 02/02/2024 Postoperative pain after spinal surgery 02/02/20 24 S/P cervical spinal fusion 02/02/2024 Varicose veins of leg with complications 013 Venous insufficiency 07/01/2012 High risk for fracture due to osteoporosis by DE XA scan 07/01/2012 Encounters Date Type Department Care Team Description 02/02/2024 10:36 AM CDT Anesthesia Event [facility] [address] [place] [address] Jodee Burns, Avinash Humphrey DO 02/02/2024 10:10 AM CDT - 02/02/2024 1:16 PM CDT Surgery [facility] [address] [place] [address] Adam Rosales MD CERVICAL 1 - CERVICAL 2 POSTERIOR INSTRUMENTED FUSION 02/02/2024 9:37 AM CDT - 02/04/2024 3:14 PM CDT Hospital Encounter [facility] [address] [place] [address] Adam Rosales MD S/P cervical spinal fusion (Primary Dx); Postoperative pain after spinal surgery; Drug-induced constipation Discharge Disposition: Home Self Care 02/01/2024 Travel from Last 3 Months Social History Tobacco Use Types Packs/Day Years Used Date Smoking Tobacco: Never Passive Smoke Exposure: Past Smokeless Tobacco: Never Alcohol Use Standard Drinks/Week Comments Yes 0 (1 standard drink = 0.6 oz pur e alcohol) 2-3 drinks a year Social Connections Answer Date Recorded Frequency of Communication with Friends and Fami ly 0 02/02/2024 Financial Resource Strain Answer Date R ecorded Difficulty of Paying Living Expenses 3 02/02/2024 Difficulty of Paying Living Expenses Not on file 02/02/2024 Food Insecurity Answer Date Recorded Do you worry your food will run out before you are able to buy more? 1 02/03/2024 Transportation Needs Answer Date Record ed Lack of Transportation (Medical) 1 02/02/2024 Housing Stability Answer Date Recorded What is your housing situation today? 1 02/03/2024 Sex and Gender Information Value Date Recorded Sex Assigned at Not on file Gender Identity Not on file Sexual Orientation Not on file Obstetrics History Last Filed Vital Signs Vital Sign Reading Time Taken Comments Blood Pressure 135/72 02/04/2024 11:05 AM CDT Pulse 62 02/04/2024 8:00 AM CDT Temperature 36.7 ??C (98 ??F) 02/04/2024 8:00 AM CDT Respiratory Rate 16 02/04/2024 8:00 AM CDT Oxygen Saturation 100% 02/04/2024 8:00 AM CDT Inhaled Oxygen Concentration - - Weight 58.2 kg (128 lb 3.2 oz) 02/02/2024 10:19 AM CDT Height 160 cm (5' 3) 02/02/2024 10:19 AM CDT Body Mass Index 22.71 02/02/2024 10:19 AM CDT Plan of Treatment Health Maintenance Due [...] 2024 01/14/2024, 03/20/2023, 11/10/2022, Additional history exists Medical Devices Implanted Type Area Inspector Final Assembly Conveyor Line Device Identifier Shelf Expiration Date Model / Serial / Lot Bone Matrix 3cc Mary Dbf Putty [facility] - [id number] Implanted:Qty: 1 on 02/02/2024 by Adam Rosales MD at [facility] N/A: Spine Med[employer]onic Spine/Ortho [id number] 11/24/2025 [id number] / [id number] / [id number] BDCE Bone 1-10mm 15cc Medtronic Chips Canclls Freeze Dried - [id number] Implanted:Qty: 1 on 02/02/2024 by Adam Rosales MD at [facility] N/A: Spine [employer] Spine/Ortho [id number] 07/20/2028 [id number] / [id number] / [id number] Screw Cerv 3.5x12mm Infinity Multi Axial - [id number] Implanted:Qty: 1 on 02/02/2024 by Adam Rosales MD at [facility] N/A: Spine Med[employer]onic Spine/Ortho [id number] / / Will Cerv 3.5x25mm Infinity Pre-Cut - [id number] Implanted:Qty: 1 on 02/02/2024 by Adam Rosales MD at [facility] N/A: Spine Med[employer]onic Spine/Ortho [id number] / / Set Screw Spinal M6 - [id number] Implanted:Qty: 2 on 02/02/2024 by Adam Rosales MD at [facility] N/A: Spine [employer] Spine/Ortho [id number] / / Screw Cerv 3.5x24mm Infinity Part Thrd Multi Axial - [id number] Implanted:Qty: 1 on 02/02/2024 by Adam Rosales MD at [facility] N/A: Spine Med[employer]onic Spine/Ortho [id number] / / Screw Cerv 4.0x38mm Ulysses Lag - [id number] Implanted:Qty: 1 on 02/02/2024 by Adam Rosales MD at [facility] N/A: Spine Med[employer]onic Spine/Ortho [id number] / / Procedures Procedure Name Priority Date/Time Associated Diagnosis Comments XR SPINE CERVICAL 2 VIEWS Routine 02/03/2024 12:38 PM CDT XR O-ARM FLUORO 31-120 MINUTES Routine 02/02/2024 12:43 PM CDT XR SPINE CERVICAL 2 VIEWS PORTABLE Routine 02/02/2024 12:35 PM CDT ENDOTRACHEAL TUBE Routine 02/02/2024 11: 02 AM CDT GLUCOSE METER Timed 02/02/2024 10:24 AM CDT FUSION POSTERIOR CERVICAL LEVEL 01 Elective 02/02/2024 10:19 AM CDT FACET ARTHRITIS OF CERVICAL REGION Case Notes O-ARM & STEALTH/TRISTEN,ALEXANDER / 4 POST (SLOPED), C-FLEX / FACEPLATE, LRG HIP PADS, MEDTRONIC SCREWSMR EKG 12 LEAD Preop 02/02/2024 9:47 AM CDT SCAN-CARDIAC STRIP 02/02/2024 12 :00 AM CDT SCAN CORRESP-LABORATORY RESULTS 01/28/2024 10:06 AM CDT from Last 3 Months Results * XR SPINE CERVICAL 2 VIEWS (02/03/2024 12:38 PM CDT) Anatomical Region Laterality Modality CERVICAL SPINE Digital Radiogra phy 02/04/2024 8:28 AM CDT Narrative 02/04/2024 8:28 AM CDT For Patients: ??As a result of the Cures Act, medical imaging exams and procedure reports are released immediately into your electronic medical record. ??You may view this report before your referring provider. ??If you have questions, please contact your health care provider. INDICATION: Postop evaluation. TECHNIQUE: Cervical spine 2 view. COMPARISON: None. FINDINGS/IMPRESSION: Bones: C1-C2 PSIF. Hardware is intact. No acute fracture. Joints: Moderate degenerative disease of the spine. Soft tissues: Drain is in place in the posterior soft tissues of the neck. Dictated by Sybil Ruffin MD @ Feb ??3 2023 ??8:28AM (Electronically Signed) [email or web address] Procedure Note Sybil Ruffin MD - 02/04/2024 For Patients: As a result of the Cures Act, medical imagingexams and procedure reports are released immediately into your electronicmedical record. You may view this report before your referring provider.If you have questions, please contact your health care provider. INDICATION: Postop evaluation. TECHNIQUE: Cervical spine 2 view. COMPARISON: None. FINDINGS/IMPRESSION: Bones: C1-C2 PSIF. Hardware is intact. No acute fracture. Joints: Moderate degenerative disease of the spine. Soft tissues: Drain is in place in the posterior soft tissues of theneck. Dictated by Sybil Ruffin MD @ Feb 04 2024 8:28AM (Electronically Signed) [email or web address] Jah [facility]CG[facility] G * XR O-ARM FLUORO 31-120 MINUTES (02/02/2024 12:43 PM CDT) Anatomical Region Laterality Modality Other Narrative 02/02/2024 11:08 AM CDT 1 minute 4 seconds fluoroscopy time was provided. ??See operative/procedure report for further information. Adam Rosales MD FLUOROSC OPY * XR SPINE CERVICAL 2 VIEWS PORTABLE (02/02/2024 12:35 PM CDT) Anatomical Region Laterality Modality Spine, CERVICAL SPINE Digital Ra diography 02/02/2024 2:19 PM CDT Narrative 02/02/2024 2:19 PM CDT For Patients: ??As a result of the Cures Act, medical imaging exams and procedure reports are released immediately into your electronic medical record. ??You may view this report before your referring provider. ??If you have questions, please contact your health care provider. Indication: Spine surgery. Technique: Portable AP and cross-table lateral digital spot radiographs of the cervical spine are obtained in surgery at 1130 hours. Comparison: None Findings: A dorsal surgical probes are projected over the posterior elements of C2 and C3. Impression : Intraoperative localization of the C2 and C3 vertebrae. Dictated by Ru Morfin MD @ Feb ??2023 ??2:19PM (Electronically Signed) Neuroradiologist [email or web address] Procedure Note Ru Morfin MD - 02/02/2024 For Patients: As a result of the Cures Act, medical imagingexams and procedure reports are released immediately into your electronicmedical record. You may view this report before your referring provider.If you have questions, please contact your health care provider. Indication: Spine surgery. Technique: Portable AP and cross-table lateral digital spot radiographs of thecervical spine are obtained in surgery at 1130 hours. Comparison: None Findings: A dorsal surgical probes are projected over the posterior elements of C2and C3. Impression : Intraoperative localization of the C2 and C3 vertebrae. Dictated by Ru Morfin MD @ Feb 02 2024 2:19PM (Electronically Signed) Neuroradiologist [email or web address] Adam Rosales MD GENERAL IMAGING * ETT (02/02/2024 11:02 AM CDT) Narrative Cleopatra Dave CRNA Student - 02/02/2024 11:02 AM CDT Cleopatra Dave CRNA Student ? 02/02/2024 11:02 AM Procedure: ETT Patient location during procedure: OR ETT Properties Mask Ventilation: oral airway Final Technique: video laryngoscopy Type: straight Location: oral Tube Size: 7.0 mm Stylet: yes Laryngoscope Blade: Glidescope Blade Size: 3 Cormack-Lehane Grade View: 1 Insertion Attempts: 1 Placement Verification: auscultation, end tidal CO2 and symmetrical chest wall movement Assessment: pharynx clear, atraumatic and dentition unchanged Secured at: 22 Measured From: teeth Bite Block: soft Difficulty: 0 (not difficult) Kristian Carlisle MD ANESTHESIA PX NOTE O RDERABLES * GLUCOSE METER (02/02/2024 10:24 AM CDT) Pathologist [facility] GLUCOSE METER 85 65 - 100 mg/dL 02/02/2024 10:26 AM CDT [facility] Blood BLOOD SPECIMEN / Unknown 02/02/2024 10:24 AM CDT 02/02/2024 10:26 AM CDT Adam Rosales MD CHEMISTR Y [facility] [facility] [address] [place] [id number], * EKG 12 LEAD (02/02/2024 9:47 AM CDT) Interpretation Sinus bradycardia Otherwise normal ECG No previous ECGs available BEYOND NOW Ventricular Rate 59 BPM BEYOND NOW Atrial Rate 59 BPM BEYOND NOW P-R Interval 162 ms BEYOND NOW QRS Duration 82 ms BEYOND NOW QT 442 ms BEYOND NOW QTc 437 ms BEYOND NOW P Forrest 54 degrees BEYOND NOW R Forrest 0 degrees BEYOND NOW T Forrest 36 degrees BEYOND NOW 02/02/2024 9:47 AM CDT 02/02/2024 3:45 PM CDT Avinash Castillo DO EKG ORD BEYOND NOW [place], [place] * SCAN-CARDIAC STRIP (02/02/2024 12:00 AM CDT) Narrative 02/02/2024 12:00 AM CDT Ordered by an unspecified provider. Other Clinical Staff OTHER * SCAN CORRESP-LABORATORY RESULTS (01/28/2024 10:06 AM CDT) Narrative 01/28/2024 10:06 AM CDT Ordered by an unspecified provider. Other Clinical Staff OTHER from Last 3 Months Advance Directives * Full Code (Latest Code Status on File) Date Activated Date Inactivated Comments 02/03/2024 7:23 AM 02/04/2024 5:20 PM Question Answer Comments Code Status Discussion: Reviewed Preferences * Full Code Date Activated Date Inactivated Comments 02/02/2024 9:49 AM 02/03/2024 7:23 AM Question Answer Comments Code Status Discussion: Unable to Assess Preferences, Provider to review later Care Teams Coin Rolling Machine Operator Relationship Specialty Start Date End Date Nayeli Melgar MD [address] [place] [address] PCP - General Family Practice 06/11/23
== END 2024-02-23 13:56 | disposition home or self-care (01) ==
LOC: NFLDREF 02-25 09:41
PROVIDERS: PCP Family Medicine; Referring Provider Family Medicine; Visit Provider Physician Assistant
DX: R30.0 Dysuria (principal); N39.0 Urinary tract infection, site not specified
CPT/HCPCS: 87086; 87186

== ENCOUNTER 2024-09-14 07:35 | Outpatient (CLI) | payer MEDICARE, BC, SELFPAY | END 2024-09-14 07:36 | disposition home or self-care (01) | LOC: NFLDREF 09-21 02:18 | PROVIDERS: PCP Family Medicine; Referring Provider Family Medicine; Visit Provider Family Medicine | DX: E78.5 Hyperlipidemia, unspecified (principal); M85.80 Other specified disorders of bone density and structure, unspecified site; M81.0 Age-related osteoporosis without current pathological fracture; Z79.1 Long term (current) use of non-steroidal anti-inflammatories (NSAID) | CPT/HCPCS: 80053; 80061; 82306 ==

== ENCOUNTER 2024-10-06 15:14 | Outpatient (CLI) | payer MEDICARE, BC, SELFPAY ==
--- NOTE | 2024-10-06 15:30 | CRLHL7_ITS ---
For Patients: As a result of the Century Cures Act, medical imaging exams and procedure reports are released immediately into your electronic medical record. You may view this report before your referring provider. If you have questions, please contact your health care provider. DXA BONE MINERAL DENSITY STUDY Current height (in): 63. Weight (lb): 125. Menopause age: 52. Ethnicity: White. 1. Have you had a previous hip or vertebral fracture? No. 2. Have you had any fractures during your adult life which did not result from significant trauma (e.g., auto accident)? No. 3. Did either of your parents have a hip fracture? No. 4. Do you smoke? No. 5. Have you ever taken Glucocorticoids? No. 6. Do you have rheumatoid arthritis? No. 7. Do you have secondary osteoporosis? No. 8. Do you drink 3 or more alcoholic drinks per day? No. 9. Are you being treated for osteoporosis? No. 10. Have you ever taken any of the following medications: Actonel, Evista, Fosamax, Miacalcin, Reclast, Boniva, Forteo, HRT (i.e. estrogen/hormone therapy), Protelos, Prolia, Vitamin D, Calcium, other ??? please specify. ANSWER: Yes, Fosamax. 11. Do you have any of the following medical conditions: Anorexia or bulimia, asthma or emphysema, end stage renal disease, hyperparathyroidism, any seizure disorders, cancer, inflammatory bowel diseases, hysterectomy, other ??? please specify. ANSWER: No. 12. What was your maximum height (inches)? 65. 13. Do you perform weight bearing exercise regularly? Yes. 14. Do you regularly consume dairy products? Yes. 15. Do you drink caffeinated beverages? Yes. 16. At what age did your period start? 14. 17. Are you premenopausal? No. 18. How many full term pregnancies have you had? 3. 19. Have you ever missed your period for more than 6 months in a row (not including or menopause)? No. TECHNIQUE: Bone mineral density study was performed using the [employer]. FINDINGS: The results of the study expressed as bone mineral density (BMD) are as follows: Lumbar spine L1 to L3: BMD: 0.728 g/cm2. T-score: -2.6. Z-score: -0.1. Neck Left: BMD: 0.613 g/cm2. T-score: -2.1. Z-score: 0.1. Right: BMD: 0.611 g/cm2. T-score: -2.1. Z-score: 0.1. Total Left: BMD: 0.757 g/cm2. T-score: -1.5. Z-score: 0.4. Right: BMD: 0.753 g/cm2. T-score: -1.6. Z-score: 0.4. IMPRESSION: Osteoporosis. COMPARISON: Compared with scan of 06/14/2020, the bone mineral density has decreased by 2.8 percent at the spine and decreased by 3.1 percent at the hip. Compared with scan of 12/30/2018, the bone mineral density has increased by 4.1percent at the spine and increased by 2.5 percent at the hip. Braydon Florez M.D. Diagnostic Radiologist [email or web address] SILVANO/haley DW/Dictated by: Braydon Florez MD @ 10/10/2024 9:16:00 AM (Electronically Signed)
== END 2024-10-06 15:15 | disposition home or self-care (01) ==
LOC: RAD 15:14
PROVIDERS: PCP Family Medicine; Visit Provider Family Medicine
DX: M85.89 Other specified disorders of bone density and structure, multiple sites (principal); M81.0 Age-related osteoporosis without current pathological fracture
CPT/HCPCS: 77080

== ENCOUNTER 2024-10-14 13:25 | Outpatient (RCR) | payer MEDICARE, BC, SELFPAY ==
--- NOTE | 2024-10-14 14:45 | ONC.NURNOTE ---
Did not treat. Having dental extractions. Mailed her a Dental clearence form.
--- NOTE | 2025-01-04 15:05 | ONC.NURNOTE ---
Political Cartoonist called patient to schedule her reclast, patient would like to decline this indefinately. She was encouraged to talk with her PCP regarding this decision.
== END 2025-04-12 23:59 | disposition home or self-care (01) ==
LOC: CCIC 13:25
PROVIDERS: PCP Family Medicine; Referring Provider Family Medicine; Visit Provider Clinical Nurse Specialist
DX: M81.0 Age-related osteoporosis without current pathological fracture (principal)
CPT/HCPCS: 82310; 82565

== ENCOUNTER 2024-11-21 11:17 | Outpatient (CLI) | payer MEDICARE, BC, SELFPAY ==
--- NOTE | 2024-11-21 11:30 | CRLHL7_ITS ---
For Patients: As a result of the Century Cures Act, medical imaging exams and procedure reports are released immediately into your electronic medical record. You may view this report before your referring provider. If you have questions, please contact your health care provider. INDICATION: BILATERAL SCREENING MAMMOGRAM, ASYMPTOMATIC 79 Y/O FEMALE COMPARISON: 11/20/2023, 04/11/2022, 01/28/2021 TECHNIQUE: Digital mammogram in CC and MLO projections including computer-aided detection (CAD) and tomosynthesis. BREAST COMPOSITION: The breasts are heterogeneously dense, which may obscure small masses. FINDINGS: No suspicious findings. ASSESSMENT: BI-RADS 1 Negative RECOMMENDATION: Annual screening mammogram. A lay language report of this examination will be provided to the patient. Dictated by: Blanca Piper MD @ 11/24/2024 07:52:39 (Electronically Signed)
== END 2024-11-21 11:18 | disposition home or self-care (01) ==
LOC: MAMMO 11:17
PROVIDERS: PCP Family Medicine; Visit Provider Family Medicine
DX: Z12.31 Encounter for screening mammogram for malignant neoplasm of breast (principal); R92.333 Mammographic heterogeneous density, bilateral breasts
CPT/HCPCS: 77063; 77067

== ENCOUNTER 2024-12-21 08:05 | Outpatient (CLI) | payer MEDICARE, BC, SELFPAY | END 2024-12-21 08:06 | disposition home or self-care (01) | LOC: NFLDREF 12-26 16:00 | PROVIDERS: PCP Family Medicine; Referring Provider Family Medicine; Visit Provider Family Medicine | DX: E78.5 Hyperlipidemia, unspecified (principal) | CPT/HCPCS: 80061 ==